=== PATIENT | female | born 1960 | race Caucasian/White ===

== ENCOUNTER 2017-06-21 22:40 | Emergency (ER) | payer OTHER ==
[2017-06-21 22:52] VITALS: BP 122/84; PULSE 99; TEMP 98; BMI 23.6
--- NOTE | 2017-06-21 23:53 | PDOC ---
Attending Attestation - Resident Resident Name: Hamzah Estrada - ED Attending Attestation I have performed the following: I have examined & evaluated the patient, The case was reviewed & discussed with the resident, I agree w/resident's findings & plan, Exceptions are as noted - Physicial Exam PE: 06/22/17 00:37 *Physical Exam General Appearance: Yes: Appropriately Dressed. No: Apparent Distress, Intoxicated HEENT: positive: EOMI, BENITA, Normal ENT Inspection, Normal Voice, TMs Normal, Pharynx Normal. negative: Pale Conjunctivae, Photophobia, Scleral Icterus (R), Scleral Icterus (L) Neck: positive: Trachea midline, Normal Thyroid, Supple. negative: Tender, Rigid, Carotid bruit, Stridor, Lymphadenopathy (R), Lymphadenopathy (L), Thyromegaly Respiratory/Chest: positive: Lungs Clear, Normal Breath Sounds. negative: Chest Tender, Respiratory Distress, Accessory Muscle Use, Labored Respiration, RES, Crackles, Rales, Rhonchi, Stridor, Wheezing, Dullness Cardiovascular: positive: Regular Rhythm, Regular Rate, S1, S2. negative: Edema , JVD, Murmur, Bradycardia, Tachycardia Vascular Pulses: Dorsalis-Pedis (R): 2+, Doralis-Pedis (L): 2+ Gastrointestinal/Abdominal: positive: Normal Bowel Sounds, Flat, Soft. negative : Tender, Organomegaly, Pulsatile Mass, Increased Bowel Sounds, Decreased BS, Distended, Guarding, Rebound, Hernia, Hepatomegaly, Spleenomegaly Lymphatic: negative: Adenopathy, Tenderness Musculoskeletal: positive: Normal Inspection. negative: CVA Tenderness, Decreased Range of Motion Extremity: positive: Normal Capillary Refill, Normal Inspection, Normal Range of Motion, Pelvis Stable. negative: Tender, Pedal Edema, Swelling, Erythema Integumentary: positive: Normal Color, Dry, Warm. negative: Cyanotic, Erythema , Jaundice, Rash Neurologic: positive: chemical weigher II-XII NML intact, Fully Oriented, Alert, Normal Mood/ Affect, Motor Strength 5/5. negative: EOM Palsy, Facial Droop, Sensory Deficit
--- NOTE | 2017-06-22 00:04 | PDOC ---
History of Present Illness - General Chief Complaint: Chronic pain Stated Complaint: OVERDOSE Time Seen by Provider: 06/21/17 23:24 History Source: Patient Exam Limitations: No Limitations - History of Present Illness Initial Comments: 06/22/17 00:00 The patient is a 56F with a PMH of depression/anxiety, HLD, on chronic pain management who presents to the ED via EMS due to her mom saying that she was acting strange. The patient states that the only thing she has complaints of is that she took her prescribed percocet too closely (8 hours apart instead of 12) . She has no other complaints and states she wants to go. Soc: smokes 1 ppd, no drinking, no drugs All: sulfa Past History - Past Medical History Allergies/Adverse Reactions: Allergies Allergy/AdvReac Type Severity Reaction Status Date / Time Sulfa (Sulfonamide Allergy Mild Rash Verified 06/21/17 22:48 Antibiotics) Home Medications: Ambulatory Orders Paroxetine HCl [Paxil] 40 mg PO DAILY 10/24/14 Trazodone HCl [Desyrel -] 100 mg PO BID 10/24/14 Atorvastatin Ca [Lipitor -] 10 mg PO DAILY 12/05/15 Cancer: (LIPOMA REMOVED) Liver Disease: Yes (HEP C. TREATED) Psychiatric Problems: Yes (DEPRESSION) - Immunization History Td Vaccination: Yes - Psycho/Social/Smoking Cessation Hx Anxiety: Yes Suicidal Ideation: No Smoking Status: Yes Smoking History: Current every day smoker Have you smoked in the past 12 months: Yes Number of Cigarettes Smoked Daily: 1 Information on smoking cessation initiated: No 'Breaking Loose' booklet given: 10/24/14 Hx Alcohol Use: (pt denies) Drug/Substance Use Hx: (pt denies) Substance Use Type: None Review of Systems - Review of Systems Able to Perform ROS?: Yes Is the patient limited Jamaican proficient: No Constitutional: No: Chills, Fever Respiratory: No: Cough, Shortness of Breath Cardiac (ROS): No: Chest Pain ABD/GI: No: Constipated, Diarrhea, Nausea, Vomiting, Other (abd pain) Neurological: Yes: Numbness (chronic in R ankle). No: Headache, Tingling, Weakness *Physical Exam - Vital Signs Last Vital Signs Temp Pulse Resp BP Pulse Ox 98.0 F 99 H 18 122/84 99 06/21/17 22:46 06/21/17 22:46 06/21/17 22:46 06/21/17 22:46 06/21/17 22:46 - Physical Exam General Appearance: Yes: Nourished, Appropriately Dressed. No: Apparent Distress, Mild Distress HEENT: positive: Normal Voice, Hearing Grossly Normal, Other (conjunctival injection b/l) Respiratory/Chest: positive: Lungs Clear, Normal Breath Sounds. negative: Chest Tender, Respiratory Distress, Accessory Muscle Use, Labored Respiration Cardiovascular: positive: Regular Rhythm, Regular Rate, S1, S2. negative: Diastolic Murmur, Systolic Murmur Gastrointestinal/Abdominal: positive: Flat, Soft. negative: Tender, Protuberent , Distended, Guarding, Rebound, Tenderness Integumentary: positive: Dry, Warm. negative: Clammy Neurologic: positive: Alert Medical Decision Making - Medical Decision Making 06/22/17 00:02 The patient is a 56F with a PMH of HLD, depression/anxiety, with chronic pain who presents to the ED with complaints of using her prescribed percocets 8 hours apart instead of 10. She has no complaints. Will observe her, reassess vitals, and d/c. 06/22/17 00:36 Vitals stable, patient desires d/c. Will put in d/c. *DC/Admit/Observation/Transfer Diagnosis at time of Disposition: Pain - Discharge Dispostion Disposition: HOME Condition at time of disposition: Improved Admit: No - Referrals Referrals: STAFF,NOT ON [Primary Care Provider] - - Patient Instructions Printed Discharge Instructions: DI for Prescription Opioid Use Additional Instructions: Please return to the ER if your symptoms persist, worsen, or if new symptoms arise. Print Language: PARAGUAYAN - Attestations Physician Attestion: 06/22/17 00:36 I, Dr. Hamzah Estrada, attest that this document has been prepared under my direction and personally reviewed by me in its entirety. I further attest, that it accurately reflects all work, treatment, procedures and medical decision -making performed by me.
== END 2017-06-22 00:42 | disposition home or self-care (01) ==
LOC: JER 22:40
DX: G89.29 Other chronic pain (principal); F41.9 Anxiety disorder, unspecified; F32.9 Major depressive disorder, single episode, unspecified; E78.5 Hyperlipidemia, unspecified; Z88.2 Allergy status to sulfonamides; B18.2 Chronic viral hepatitis C; F17.210 Nicotine dependence, cigarettes, uncomplicated
CPT/HCPCS: 99282-25

== ENCOUNTER 2017-07-23 17:33 | Emergency (ER) | payer OTHER ==
[2017-07-23 17:39] VITALS: BP 131/90; PULSE 88; TEMP 98.7; BMI 21.4
[2017-07-23 17:48] LABS: URINE APPEARANCE Clear; URINE BILIRUBIN Negative (NEGATIVE); URINE GLUCOSE (UA) Negative (NEGATIVE); URINE KETONE Negative (NEGATIVE); URINE NITRITE Negative (NEGATIVE); URINE PROTEIN Negative (NEGATIVE); URINE UROBILINOGEN 0.2 (0.2-1.0)
[2017-07-23] MEDS ORDERED: IBUPROFEN 600 MG TABLET (FP) PO ONE ×2 (17:59→18:03)
[2017-07-23] MEDS ORDERED: ONDANSETRON *ODT* 4 MG TABLET SL ONE (17:59)
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
[2017-07-23] MEDS ORDERED: ONDANSETRON *ODT* 4 MG TABLET ONE (18:04)
[2017-07-23 18:44] LABS: URINE BLOOD 2+ (NEGATIVE); URINE COLOR YELLOW
[2017-07-23] MEDS ORDERED: morphine CARPU-JECT 4 MG/1 ML DISP.SYRIN IM ONE (18:48)
[2017-07-23] MEDS ORDERED: morphine CARPU-JECT 4 MG/1 ML DISP.SYRIN ONE (18:50)
[2017-07-23 19:10] LABS: URINE BACTERIA 1+ /hpf (NEGATIVE)
[2017-07-23 22:07] LABS: URINE LEUK ESTERASE TRACE (NEGATIVE)
== END 2017-07-23 19:11 | disposition home or self-care (01) ==
LOC: FER 17:33
PROC: 3E023NZ Introduction of Analgesics, Hypnotics, Sedatives into Muscle, Percutaneous Approach (ICD-10-PCS; principal; 2017-07-23)
DX: N20.0 Calculus of kidney (principal); F17.210 Nicotine dependence, cigarettes, uncomplicated; Z87.2 Personal history of diseases of the skin and subcutaneous tissue; F32.9 Major depressive disorder, single episode, unspecified
CPT/HCPCS: 74176; 81003; 81015; 96372; 99282-25

== ENCOUNTER 2018-01-17 16:30 | Emergency (ER) | payer OTHER ==
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
[2018-01-17] MEDS ORDERED: KETOROLAC TROMETHAMINE 30 MG/1 ML VIAL IM ONE ×2 (16:47→18:03)
[2018-01-17 16:50] VITALS: BP 130/88; PULSE 68; TEMP 98.3; BMI 22.8
[2018-01-17] MEDS ORDERED: KETOROLAC TROMETHAMINE 30 MG/1 ML VIAL ONE ×2 (17:01→18:16)
[2018-01-17] MEDS ORDERED: ACETAMINOPHEN 1000 MG/100 ML VIAL (NON FORMULARY) IVPB ONE (18:03)
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
[2018-01-17] MEDS ORDERED: ACETAMINOPHEN INJECTION 100 ML IVPB ONE (18:11)
== END 2018-01-17 18:35 | disposition home or self-care (01) ==
LOC: FER 16:30
PROC: 3E033NZ Introduction of Analgesics, Hypnotics, Sedatives into Peripheral Vein, Percutaneous Approach (ICD-10-PCS; principal; 2018-01-17)
PROC: 3E0233Z Introduction of Anti-inflammatory into Muscle, Percutaneous Approach (ICD-10-PCS; 2018-01-17)
DX: M25.571 Pain in right ankle and joints of right foot (principal)
CPT/HCPCS: 73610-TC-RT-FY; 99283-25; J0131

== ENCOUNTER 2018-08-17 18:07 | Emergency (ER) | payer OTHER ==
[2018-08-17 18:11] VITALS: BP 112/85; PULSE 89; TEMP 98.2; BMI 22.1
--- NOTE | 2018-08-17 18:11 | PDOC ---
Attending Attestation - HPI HPI: 08/17/18 19:12 The patient is a 57 year old female, with a significant PMH of HLD and nicotine , who presents to the emergency department complaining of a cough that began approximately 6 days ago. The patient states she endorses associated symptoms of chills, sweats, headache, sputum productions and generalized weakness. She mentions she had pneumonia in 2008 and bronchitis twice in the last few years. The patient denies chest pain, shortness of breath, and dizziness.Denies nausea , vomit, diarrhea and constipation.Denies dysuria, frequency, urgency and hematuria. Allergies: Sulfa Past surgical history: None reported Social history: None reported - Physicial Exam PE: 08/17/18 19:12 GENERAL: Alert, awake and oriented. No apparent distress. HEENT: +Watery discharge. Normocephalic, atraumatic. CARDIOVASCULAR: Normal S1, S2. Regular rate and rhythm. PULMONARY: Respiratory rate 17 unlabored. O2 Sat 100%Clear to auscultation bilaterally. ABDOMEN: Soft, non-distended, non-tender. SKIN: Warm, dry. No rash - Medical Decision Making 08/17/18 19:13 Documentation prepared by Ifeoma Jaffe, acting as biomedical engineering director for Nigel Robledo MD. <Ifeoma Jaffe - Last Filed: 08/17/18 19:12> - Resident Resident Name: Eleanor Benjamin - ED Attending Attestation I have performed the following: I have examined & evaluated the patient, The case was reviewed & discussed with the resident, I agree w/resident's findings & plan, Exceptions are as noted - Medical Decision Making 08/18/18 07:13 Assessment: Bronchitis in a smoker. No sign of pneumonia. No fever, respiratory rate 16 and unlabored, O2 saturation 100%. No tachypnea or dyspnea. Plan: Antibiotics, expectorant and cough suppressant, try to reduce smoking at least until illness improves and consider smoking cessation. Fully ambulatory and in no distress respiratory or otherwise at discharge to follow-up as directed <Nigel Padilla - Last Filed: 08/18/18 07:15>
--- NOTE | 2018-08-17 18:16 | PDOC ---
History of Present Illness - General Chief Complaint: Cold Symptoms Stated Complaint: COUGH Time Seen by Provider: 08/17/18 18:16 History Source: Patient Exam Limitations: No Limitations - History of Present Illness Initial Comments: 08/17/18 18:26 57 year old female with PMH HLD, nicotine use presents to ED complaining of cough x6 days. She admits to generalized weakness, sputum production, chills, sweats, headache. She denies fever, sore throat, ear pain, nausea, vomiting, diarrhea, abdominal pain, chest pain, shortness of breath, numbness, weakness, tingling. She states she had pneumonia in 2008 and bronchitis twice in the last few years. Allergies - Sulfa (rash) Past History - Past Medical History Allergies/Adverse Reactions: Allergies Allergy/AdvReac Type Severity Reaction Status Date / Time Sulfa (Sulfonamide Allergy Mild Rash Verified 08/17/18 18:08 Antibiotics) naproxen [From Naprosyn] Allergy Rash Verified 08/17/18 18:08 Home Medications: Ambulatory Orders Paroxetine HCl [Paxil] 60 mg PO DAILY 10/24/14 Atorvastatin Ca [Lipitor -] 10 mg PO DAILY 12/05/15 Gabapentin 300 mg PO TID 07/23/17 Azithromycin [Zithromax 250mg Tablets -] 250 mg PO UTDICT #6 tab 08/17/18 Guaifenesin AC [Robitussin-AC] 1 - 2 tsp PO HS PRN #90 ml MDD 2 08/17/18 Cancer: (LIPOMA REMOVED) COPD: No Liver Disease: Yes (HEP C. TREATED) Psychiatric Problems: Yes (DEPRESSION) - Immunization History Td Vaccination: Yes - Suicide/Smoking/Psychosocial Hx Smoking Status: Yes Smoking History: Current every day smoker Have you smoked in the past 12 months: Yes Number of Cigarettes Smoked Daily: 20 Information on smoking cessation initiated: Yes 'Breaking Loose' booklet given: 08/17/18 Hx Alcohol Use: No Drug/Substance Use Hx: No Substance Use Type: None Review of Systems - Review of Systems Able to Perform ROS?: Yes Comments:: 08/17/18 18:36 General: admits to generalized weakness, chills, sweats. denies fever. HEENT: admits to nasal congestion. denies sore throat, rhinorrhea, ear pain. Heart: denies chest pain, palpitations, syncope, lower extremity swelling, diaphoresis. Respiratory: admits to cough, sputum production. denies shortness of breath, hemoptysis. Abdomen: denies abdominal pain, nausea, vomiting, diarrhea, constipation, blood in stool. : denies dysuria, increased urinary frequency, hematuria, urinary incontinence , flank pain. Back: denies back pain. Musculoskeletal: denies joint pain, muscle pain, joint swelling. Neurological: admit to headache. denies dizziness, numbness, tingling, weakness. Skin: denies rash, laceration, abrasion. *Physical Exam - Vital Signs Last Vital Signs Temp Pulse Resp BP Pulse Ox 98.2 F 89 17 112/85 100 08/17/18 18:08 08/17/18 18:08 08/17/18 18:08 08/17/18 18:08 08/17/18 18:08 - Physical Exam Comments: 08/17/18 18:39 Constitutional: Well-nourished, Well-developed, appearing stated age. HEENT: head is normocephalic, atraumatic. EOMI. PERRLA. no posterior pharyngeal erythema. no tonsillar swelling. no tonsillar exudates. uvula midline. oral mucosa moist. watery nasal discharge noted. Neck: supple. Full ROM. Heart: regular rhythm. no murmurs, rubs or gallops. Lungs: clear to auscultation bilaterally. no crackles, rhonchi or wheezing. no stridor. Abdomen: soft, nontender. normal bowel sounds. no rebound, guarding, masses. Extremities: Peripheral pulses intact. No lower extremity edema. Neurological: CN 2-12 grossly intact. Moves all four extremities. Psych: awake, alert, oriented x3. Follows commands. Answers questions appropriately. Medical Decision Making - Medical Decision Making 08/17/18 18:41 57 year old female with PMH HLD and nicotine history complaining of productive cough, nasal congestion, headache, chills, sweats, generalized weakness. Initial Vital Signs Temp Pulse Resp BP Pulse Ox 98.2 F 89 17 112/85 100 08/17/18 18:08 08/17/18 18:08 08/17/18 18:08 08/17/18 18:08 08/17/18 18:08 Afebrile. No tachycardia. No tachypnea. Mild hypotension. No hypoxia on room air. Lungs clear to auscultation. Pt appears well, but congested. Pt likely has bronchitis. - Prescription sent to pharmacy for Z-pack and Robitussin with Codeine. I discussed the plan for care with the patient, with which which she agrees. Pt will be discharged. *DC/Admit/Observation/Transfer Diagnosis at time of Disposition: Bronchitis, Cough - Discharge Dispostion Disposition: HOME Condition at time of disposition: Stable Decision to Admit order: No - Prescriptions Prescriptions: Azithromycin [Zithromax 250mg Tablets -] 250 mg PO UTDICT #6 tab Guaifenesin AC [Robitussin-AC] 1 - 2 tsp PO HS PRN #90 ml MDD 2 PRN Reason: Cough - Referrals Referrals: Zuleika Bates [Primary Care Provider] - - Patient Instructions Additional Instructions: You were seen today for cough. You likely have bronchitis. I have sent a prescription for a Z-pack to your pharmacy. Pick it up tonight and take as directed on package. - Take with food to avoid nausea Take a pro-biotic over the counter as indicated on label to help prevent antibiotic associated diarrhea. I have sent a prescription for Robitussin with Codeine to your pharmacy to help with cough. Take as indicated on label. Follow up with your primary care doctor within 3-4 days. Call their office Sunday and make an appointment for as soon as available. Tell them you were seen in the Emergency Department. Your care is not complete until you follow up. - You need to stop smoking - Discuss this with your primary care provider Return to the Emergency Department for chest pain, shortness of breath, high fever or any other new, worsening or concerning symptoms. - Post Discharge Activity
== END 2018-08-17 18:52 | disposition home or self-care (01) ==
LOC: FER 18:07
DX: J40 Bronchitis, not specified as acute or chronic (principal); R05 Cough; E78.5 Hyperlipidemia, unspecified; F17.210 Nicotine dependence, cigarettes, uncomplicated
CPT/HCPCS: 99281-25

== ENCOUNTER 2019-01-03 18:59 | Emergency (ER) | payer OTHER ==
--- NOTE | 2019-01-03 19:11 | PDOC ---
History of Present Illness - General History Source: Patient Exam Limitations: No Limitations - History of Present Illness Initial Comments: 01/03/19 19:37 The patient is a 58-year-old female with past medical history significant for chronic right leg pain (follows up with pain management, on Percocet) and osteoarthritis of R. ankle presents to the emergency department with right wrist pain s/p a fall earlier today. The patient reports around 11:00 am today she suffered a fall, with her hands outstretched. The patient states she didnt want to further injure her leg, so she tried to prevent that by having her hands out. The patient reports she sustained a scrap to her L. Knee. The patient reports since the fall shes been having pain to her wrist, worse on the right side. The patient states she is unable to move it. The patient denies taking any pain medication. Allergies: Sulfa and Naproxen (headache) PCP: Dr. Bates. <Funmilayo Peña - Last Filed: 01/03/19 19:58> <Lizandro Cabello - Last Filed: 01/04/19 05:35> - General Chief Complaint: Injury Stated Complaint: RT WRIST PAIN Time Seen by Provider: 01/03/19 19:11 Past History <Funmilayo Peña - Last Filed: 01/03/19 19:58> - Past Medical History Cancer: (LIPOMA REMOVED) COPD: No Liver Disease: Yes (HEP C. TREATED) Psychiatric Problems: Yes (DEPRESSION) - Immunization History Td Vaccination: Yes - Suicide/Smoking/Psychosocial Hx Smoking Status: Yes Smoking History: Current every day smoker Have you smoked in the past 12 months: Yes Number of Cigarettes Smoked Daily: 20 'Breaking Loose' booklet given: 07/23/17 Hx Alcohol Use: No Drug/Substance Use Hx: No Substance Use Type: None <Lizandro Cabello - Last Filed: 01/04/19 05:35> - Past Medical History Allergies/Adverse Reactions: Allergies Allergy/AdvReac Type Severity Reaction Status Date / Time Sulfa (Sulfonamide Allergy Mild Rash Verified 08/17/18 18:08 Antibiotics) naproxen [From Naprosyn] Allergy Rash Verified 08/17/18 18:08 Home Medications: Ambulatory Orders Paroxetine HCl [Paxil] 60 mg PO DAILY 10/24/14 Atorvastatin Ca [Lipitor -] 10 mg PO DAILY 12/05/15 Oxycodone HCl/Acetaminophen [Percocet 5-325 mg Tablet] 1 tab PO Q4H PRN Review of Systems - Review of Systems Able to Perform ROS?: Yes Comments:: 01/03/19 19:37 GENERAL/CONSTITUTIONAL: No fever or chills. No weakness. HEAD, EYES, EARS, NOSE AND THROAT: No change in vision. No ear pain or discharge. No sore throat. CARDIOVASCULAR: No chest pain or shortness of breath. RESPIRATORY: No cough, wheezing, or hemoptysis. GASTROINTESTINAL: No nausea, vomiting, diarrhea or constipation. GENITOURINARY: No dysuria, frequency, or change in urination. MUSCULOSKELETAL: +R. Wrist pain, L. wrist minimal pain. No other joint or muscle swelling or pain. No neck or back pain. SKIN: No rash NEUROLOGIC: No headache, vertigo, loss of consciousness, or change in strength/ sensation. ENDOCRINE: No increased thirst. No abnormal weight change. HEMATOLOGIC/LYMPHATIC: No anemia, easy bleeding, or history of blood clots. ALLERGIC/IMMUNOLOGIC: No hives or skin allergy. <Funmilayo Peña - Last Filed: 01/03/19 19:58> *Physical Exam - Vital Signs Last Vital Signs Temp Pulse Resp BP Pulse Ox 98.7 F 93 H 16 0/0 L 97 01/03/19 19:07 01/03/19 19:07 01/03/19 19:07 01/03/19 19:07 01/03/19 19:07 - Physical Exam Comments: 01/03/19 19:58 GENERAL: Awake, alert, and fully oriented, in no acute distress HEAD: No signs of trauma NECK: Normal ROM, supple, no lymphadenopathy, JVD, or masses LUNGS: Breath sounds equal, clear to auscultation bilaterally. No wheezes, and no crackles HEART: Regular rate and rhythm, normal S1 and S2, no murmurs, rubs or gallops EXTREMITIES: +radial side wrist tenderness. no edema. No clubbing or cyanosis. No cords, erythema. SKIN: Warm, Dry, normal turgor, no rashes or lesions noted. <Funmilayo Peña - Last Filed: 01/03/19 19:58> Moderate Sedation - Procedure Monitoring Vital Signs: Procedure Monitoring Vital Signs Temperature 98.7 F 01/03/19 19:07 Pulse Rate 93 H 01/03/19 19:07 Respiratory Rate 16 01/03/19 19:07 Blood Pressure 0/0 L 01/03/19 19:07 O2 Sat by Pulse Oximetry (%) 97 01/03/19 19:07 <Funmilayo Peña - Last Filed: 01/03/19 19:58> Medical Decision Making - Medical Decision Making 01/04/19 05:34 msk wrist pain no fx on plain films cockup splint until symptoms tahmina nsaids fu for persistent symptomotology <Lizandro Cabello - Last Filed: 01/04/19 05:35> *DC/Admit/Observation/Transfer - Attestations Scribe Attestion: 01/03/19 19:37 Documentation prepared by Funmilayo Peña, acting as medical records receptionist for Lizandro Cabello MD. <Funmilayo Peña - Last Filed: 01/03/19 19:58> <Lizandro Cabello - Last Filed: 01/04/19 05:35> Diagnosis at time of Disposition: Wrist contusion Qualifiers: Encounter type: initial encounter Laterality: right Qualified Code(s): S60.211A - Contusion of right wrist, initial encounter - Discharge Dispostion Disposition: HOME Condition at time of disposition: Stable - Referrals Referrals: Zuleika Bates [Primary Care Provider] - - Patient Instructions Printed Discharge Instructions: DI for Wrist Strain, How to Take Care of Your Splint - Post Discharge Activity
[2019-01-03 19:12] VITALS: BP 0/0; PULSE 93; TEMP 98.7; BMI 20.7
[2019-01-03] MEDS ORDERED: KETOROLAC TROMETHAMINE 60 MG/2 ML VIAL IM ONE (19:16)
[2019-01-03] MEDS ORDERED: KETOROLAC TROMETHAMINE 60 MG/2 ML VIAL ONE (19:43)
== END 2019-01-03 19:48 | disposition home or self-care (01) ==
LOC: FER 18:59
PROC: 3E0233Z Introduction of Anti-inflammatory into Muscle, Percutaneous Approach (ICD-10-PCS; principal; 2019-01-03)
DX: S60.211A Contusion of right wrist, initial encounter (principal); W20.8XXA Other cause of strike by thrown, projected or falling object, initial encounter; Y93.89 Activity, other specified; Y92.89 Other specified places as the place of occurrence of the external cause; B19.20 Unspecified viral hepatitis C without hepatic coma; F32.9 Major depressive disorder, single episode, unspecified; F17.210 Nicotine dependence, cigarettes, uncomplicated; D17.9 Benign lipomatous neoplasm, unspecified; G89.29 Other chronic pain
CPT/HCPCS: 73110-TC-RT-FY; 96372; 99282-25

== ENCOUNTER 2019-02-23 12:23 | Emergency (ER) | payer OTHER ==
--- NOTE | 2019-02-23 12:39 | PDOC ---
History of Present Illness - General Chief Complaint: Pain Stated Complaint: LEFT LEG PAIN Time Seen by Provider: 02/23/19 12:37 History Source: Patient Exam Limitations: No Limitations - History of Present Illness Initial Comments: 02/23/19 12:57 58y F hx of hl, depression, presents with L leg pain. Pt was in [facility] until this morning around 4am when she woke up to use the bathroom, put her feet on the ground to stand up and noticed a pain behind her L knee that radiated up to her L buttock. The pt notse the pain is more severe, it is worse when stands up and improvd when she sits with her knee flexed. pt osman any fever/chills, urinary or bowel incontinence or retention, back pain. No cp, sob, cough, abd pain. Pt denies any changes to her routine including heavy lifting, excercises. Pt took a percocet and lyrica this morning without signiciant improvement. ( perc for chronic R leg pain) Pt ntose she has these episodes ~3x a year that start spontaenously . Past History - Past Medical History Allergies/Adverse Reactions: Allergies Allergy/AdvReac Type Severity Reaction Status Date / Time Sulfa (Sulfonamide Allergy Mild Rash Verified 02/23/19 12:24 Antibiotics) naproxen [From Naprosyn] Allergy Rash Verified 02/23/19 12:25 Home Medications: Ambulatory Orders Paroxetine HCl [Paxil] 60 mg PO DAILY 10/24/14 Atorvastatin Ca [Lipitor -] 10 mg PO DAILY 12/05/15 Oxycodone HCl/Acetaminophen [Percocet 5-325 mg Tablet] 1 tab PO Q4H PRN Pregabalin [Lyrica] 50 mg PO BID 02/23/19 Cancer: (LIPOMA REMOVED) COPD: No Hypercholesterolemia: Yes Liver Disease: Yes (HEP C. TREATED) Psychiatric Problems: Yes (DEPRESSION) - Immunization History Td Vaccination: Yes - Suicide/Smoking/Psychosocial Hx Smoking Status: Yes Smoking History: Current every day smoker Have you smoked in the past 12 months: Yes Number of Cigarettes Smoked Daily: 20 'Breaking Loose' booklet given: 07/23/17 Hx Alcohol Use: No Drug/Substance Use Hx: No Substance Use Type: None Review of Systems - Review of Systems Able to Perform ROS?: Yes Comments:: 02/23/19 13:01 Constitutional - no reported Fever, Chills, Respiratory: no reported cough, sob, Cardiac: no reported chest pain, Abd/GI: no reported abd pain, nausea, vomiting, : no reported dysuria, frequency, discharge Musculskelatal - +L leg pain no reported back pain, joint swelling skin - no reported bruising, erythema, rash neurological: no reported headache, numbness, focal weakness, tingling, ataxia, hematologic: no reported easy bruising, easy bleeding *Physical Exam - Physical Exam Comments: 02/23/19 13:02 GENERAL: The patient is awake, alert, and fully oriented, Nontoxic - in no acute distress. EXTREMITIES: Normal range of motion, no edema. No clubbing or cyanosis. No cords, erythema, or tenderness. Mild ttp on her superior L buttock/gluteus darius (excacerbates her L leg pain). SEnsation intact and symmetric, dorsiflexion/extnesion intact and symmmetric, knee/hip extension/flexion intact and symmetric. BACK: No focal ttp on midline or parapsinal cervical/thoracic/lumbar back Medical Decision Making - Medical Decision Making 02/23/19 13:03 Suspect sciatica no red flags no ttp on back toradol for pain pt declines muscle relaxants as she does not tolrate them will dc with pmd fu return precautions were discussed pt noted with jm dawn - but has taken advil and toradol before without ill effect I discussed the physical exam findings, ancillary test results and final diagnoses with the patient. I answered all of the patient's questions. The patient was satisfied with the care received and felt comfortable with the discharge plan and treatment plan. The patient will call their primary care physician within 24 hours to arrange follow-up and will return to the Emergency Department with any new, persistent or worsening symptoms. *DC/Admit/Observation/Transfer Diagnosis at time of Disposition: Sciatica Qualifiers: Laterality: left Qualified Code(s): M54.32 - Sciatica, left side - Discharge Dispostion Disposition: HOME Condition at time of disposition: Stable Decision to Admit order: No - Referrals Referrals: Zuleika Bates [Primary Care Provider] - - Patient Instructions Printed Discharge Instructions: DI for Sciatica Additional Instructions: Return to the emergency department immediately with ANY new, persistent or worsening symptoms including numbness, tingling, weakness, fevers or any other concerns. Take ibuprofen (400mg)/tylenol(650mg) every 6 hours for 2 days. Apply heat to your sore muscles. You MUST call and follow up with your doctor in 3-4 days for further evaluation of your symptoms. Your emergency department visit is not complete without a followup with your doctor for reevaluation.. Results were discussed with you. Please make sure your doctor reviews the results of your emergency evaluation. Print Language: CROATIAN - Post Discharge Activity
[2019-02-23 12:42] VITALS: BP 114/85; PULSE 85; TEMP 99.6; BMI 22.1
[2019-02-23] MEDS ORDERED: KETOROLAC TROMETHAMINE 60 MG/2 ML VIAL ONE (12:54)
[2019-02-23] MEDS ORDERED: KETOROLAC TROMETHAMINE 60 MG/2 ML VIAL IM ONE (12:54)
== END 2019-02-23 13:16 | disposition home or self-care (01) ==
LOC: SUPCPDRO 12:23 → FER 12:23
PROC: 3E0233Z Introduction of Anti-inflammatory into Muscle, Percutaneous Approach (ICD-10-PCS; principal; 2019-02-23)
DX: M54.32 Sciatica, left side (principal); F17.210 Nicotine dependence, cigarettes, uncomplicated; F32.9 Major depressive disorder, single episode, unspecified; B19.20 Unspecified viral hepatitis C without hepatic coma
CPT/HCPCS: 99282-25

== ENCOUNTER 2019-03-08 11:24 | Emergency (ER) | payer OTHER ==
--- NOTE | 2019-03-08 11:28 | PDOC ---
History of Present Illness - General Chief Complaint: Back Pain Stated Complaint: LOW BACK PAIN Time Seen by Provider: 03/08/19 11:26 History Source: Patient Exam Limitations: No Limitations - History of Present Illness Initial Comments: 03/08/19 11:27 Pt is a 58yo F with PMH of HLD, Sciatica, Depression presenting to ED with complaints of L posterior leg pain. Pt states this is due to sciatica which she has been having off and on for about 1 year now but for the past two weeks it has been getting worse. She states it was so bad yesterday that she fell on to her knees at the store because her leg gave out. Pain is a shooting pain located in the L posterior thigh only. She had MRI done 5 days ago which showed L S1 nerve root impingement. She denies injury to the back. She is seeing pain management and states she has an appointment with someone for an epidural coming up. She states that she was prescribed Lyrica and Percocet but the medications have not been helping but they normally do. Denies numbness/tingling , weakness, fevers, chills, incontinence, inability to walk, head injury, LOC. PMD: Wing PMH: see hpi PSH: R leg fracture fixation Meds: see med rec Allergies: Sulfa drugs Past History - Past Medical History Allergies/Adverse Reactions: Allergies Allergy/AdvReac Type Severity Reaction Status Date / Time Sulfa (Sulfonamide Allergy Mild Rash Verified 03/08/19 11:40 Antibiotics) naproxen [From Naprosyn] Allergy Rash Verified 03/08/19 11:40 Home Medications: Ambulatory Orders Oxycodone HCl/Acetaminophen [Percocet 5-325 mg Tablet] 1 tab PO Q4H PRN Pregabalin [Lyrica] 50 mg PO TID 02/23/19 Atorvastatin Calcium [Lipitor] 10 mg PO DAILY 03/08/19 Paroxetine HCl [Paxil -] 60 mg PO DAILY 03/08/19 Cancer: (LIPOMA REMOVED) COPD: No Hypercholesterolemia: Yes Liver Disease: Yes (HEP C. TREATED) Psychiatric Problems: Yes (DEPRESSION) - Immunization History Td Vaccination: Yes - Suicide/Smoking/Psychosocial Hx Smoking Status: Yes Smoking History: Current every day smoker Have you smoked in the past 12 months: Yes Number of Cigarettes Smoked Daily: 20 'Breaking Loose' booklet given: 07/23/17 Hx Alcohol Use: No Drug/Substance Use Hx: No Substance Use Type: None Review of Systems - Review of Systems Constitutional: No: Chills, Fever HEENTM: No: Symptoms Reported Respiratory: No: Symptoms reported Cardiac (ROS): No: Symptoms Reported ABD/GI: No: Symptoms Reported : No: Symptoms Reported Musculoskeletal: Yes: See HPI, Other (L leg pain). No: Back Pain, Joint Pain, Neck Pain Neurological: No: Headache, Numbness, Tingling, Tremors, Weakness, Ataxia *Physical Exam - Physical Exam General Appearance: Yes: Nourished, Appropriately Dressed. No: Apparent Distress HEENT: positive: EOMI, BENITA, Normal ENT Inspection Neck: positive: Trachea midline, Supple Respiratory/Chest: positive: Lungs Clear, Normal Breath Sounds Cardiovascular: positive: Regular Rhythm, Regular Rate Gastrointestinal/Abdominal: positive: Normal Bowel Sounds, Soft. negative: Tender Musculoskeletal: negative: CVA Tenderness, Decreased Range of Motion, Muscle Spasm, Vertebral Tenderness Extremity: positive: Normal Capillary Refill Integumentary: positive: Normal Color, Dry, Warm Neurologic: positive: independent beauty consultant II-XII NML intact, Fully Oriented, Alert, Normal Mood/ Affect, Normal Response, Motor Strength 5/5 Medical Decision Making - Medical Decision Making 03/08/19 11:29 Pt is a 58yo F with PMH of HLD, Sciatica, Depression presenting to ED with complaints of L posterior leg pain. Pt states this is due to sciatica which she has been having off and on for about 1 year now but for the past two weeks it has been getting worse. She states it was so bad yesterday that she fell on to her knees at the store because her leg gave out. Pain is a shooting pain located in the L posterior thigh only. She had MRI done 5 days ago which showed L S1 nerve root impingement. She denies injury to the back. She is seeing pain management and states she has an appointment with someone for an epidural coming up. She states that she was prescribed Lyrica and Percocet but the medications have not been helping but they normally do. Denies numbness/tingling , weakness, fevers, chills, incontinence, inability to walk, head injury, LOC. Vitals: low grade fever 100.1, normocardic PE: no vertebral tenderness, no step offs, ambulatory, no paravertebral muscle spasms otherwise normal exam Likely sciatica pain, low suspicion for other cord pathology given MRI report. Pt states that toradol does not help and is refusing toradol and muscle relaxant. -6mg IM morphine -Lidoderm Patch -Reassess Pt has pain management f/u and has medications at home, low suspicion for other etiology for pain. Feeling better and ambulatory. Safe for dc home. given return precautions. *DC/Admit/Observation/Transfer Diagnosis at time of Disposition: Sciatica Qualifiers: Laterality: left Qualified Code(s): M54.32 - Sciatica, left side - Discharge Dispostion Disposition: HOME Condition at time of disposition: Improved Decision to Admit order: No - Referrals Referrals: Zuleika Bates [Primary Care Provider] - Nav Flores MD [Staff Physician] - - Patient Instructions Printed Discharge Instructions: DI for Sciatica Additional Instructions: You were seen in the emergency room for L leg pain due to sciatica. Please take your medications as directed. Continue seeing pain management. I recommend laying down on a flat surface, sometimes this helps. Remember to take the patch off at midnight. Come back to the emergency room for worsening pain, inability to walk, or if any new concerning symptom develops. Thank you - Post Discharge Activity
--- NOTE | 2019-03-08 11:29 | PDOC ---
Attending Attestation - Resident Resident Name: KathyMariajose - ED Attending Attestation I have performed the following: I have examined & evaluated the patient, The case was reviewed & discussed with the resident, I agree w/resident's findings & plan, Exceptions are as noted - HPI HPI: 58 yo F history chronic pain secondary to herniated disc at S1 presents with an exacerbation of her chronic pain. Typically it localizes to her low back and to her L posterior knee and thigh. She fell yesterday onto her knees, however, the pain is posterior, not anterior. No leg swelling. - Physicial Exam PE: GENERAL: Awake, alert, and fully oriented, in no acute distress HEAD: No signs of trauma EYES: PERRLA, EOMI, sclera anicteric, conjunctiva clear ENT: Auricles normal inspection, hearing grossly normal, nares patent, oropharynx clear without exudates. Moist mucosa NECK: Normal ROM, supple, no lymphadenopathy, JVD, or masses LUNGS: Breath sounds equal, clear to auscultation bilaterally. No wheezes, and no crackles HEART: Regular rate and rhythm, normal S1 and S2, no murmurs, rubs or gallops ABDOMEN: Soft, nontender, normoactive bowel sounds. No guarding, no rebound. No masses EXTREMITIES: Normal range of motion, no edema. No clubbing or cyanosis. No cords, erythema, or tenderness NEUROLOGICAL: Cranial nerves II through XII grossly intact. Normal speech. + Antalgic gait. Motor and sensation intact SKIN: Warm, Dry, normal turgor, no rashes. +Abrasions to knees B/L. - Medical Decision Making Pt with exacerbation of chronic pain. Refused NSAID for pain (she received toradol on multiple prior ED visits). She stated she was given demerol once in the past in this ED (I did a chart review and saw one dose of dilaudid IM in 2016- I explained this to her). She declined to take a muscle relaxer or percocet, stating that she has percocet and that it does not work, and that she has a contract with her pain mgmt center. She did agree to try a lidoderm patch in ED, I will send her a prescription if it helps. Gave a dose of morphine IM. I explained that this is only temporary, and that in about 6 hours she will likely have similar pain. She requested to be discharged shortly after receiving medication, driven by a friend.
[2019-03-08] MEDS ORDERED: LIDOCAINE 5% TOPICAL PATCH TP ONE ×2 (11:46→12:02)
[2019-03-08] MEDS ORDERED: KETOROLAC TROMETHAMINE 30 MG/1 ML VIAL IM ONE (11:46)
[2019-03-08 11:47] VITALS: BP 125/86; PULSE 90; TEMP 100.1; BMI 21.4
[2019-03-08] MEDS ORDERED: METHOCARBAMOL 750 MG TAB PO ONE (11:47)
[2019-03-08] MEDS ORDERED: morphine CARPU-JECT 2 MG/1 ML DISP.SYRIN IM ONE (11:50)
[2019-03-08] MEDS ORDERED: morphine SULFATE 4 MG/ML VIAL ONE (11:52)
[2019-03-08] MEDS ORDERED: LIDOCAINE 5% TOPICAL PATCH ONE (12:06)
[2019-03-08] MEDS ORDERED: LIDOCAINE PATCH REMOVAL MC SCH ×2 (22:00)
== END 2019-03-08 12:14 | disposition home or self-care (01) ==
LOC: FER 11:24 → SUPCPDRO 11:24 → FER 12:14
PROC: 3E0233Z Introduction of Anti-inflammatory into Muscle, Percutaneous Approach (ICD-10-PCS; principal; 2019-03-08)
DX: M54.31 Sciatica, right side (principal); E78.00 Pure hypercholesterolemia, unspecified; F32.9 Major depressive disorder, single episode, unspecified; B18.2 Chronic viral hepatitis C
CPT/HCPCS: 99282-25

== ENCOUNTER 2020-01-14 15:46 | Emergency (ER) | payer OTHER ==
--- NOTE | 2020-01-14 15:54 | PDOC ---
Attending Attestation - Resident Resident Name: YoannamarkGaurav - ED Attending Attestation I have performed the following: I have examined & evaluated the patient, The case was reviewed & discussed with the resident, I agree w/resident's findings & plan, Exceptions are as noted - HPI HPI: 01/14/20 18:24 Tripped over the door jam several days ago, injuring her right elbow, left foot, and low back. Pain in these areas has persisted, and she has developed numbness and tingling in the fourth and fifth digits of her right hand, along with weakness of the hand itself. Denies pain or injury to the head or neck. There was no loss of consciousness, confusion, or excessive drowsiness. Past history is significant for multiple orthopedic injuries, including lumbar discectomy, and the patient uses a cane for ambulation at all times. 01/14/20 18:28 - Physicial Exam PE: 01/14/20 18:25 Physical exam reveals alert and oriented female in no obvious distress, cooperative Afebrile, vital signs normal Head and neck without visible or palpable trauma. Full range of motion of the cervical spine without pain. Right elbow: Diffuse swelling, tenderness, without localization. No deformity, and there is full range of motion in flexion and extension without limitation. Left foot: Erythema, warmth, and swelling, with edema, dorsal lateral foot. No abrasion, puncture, or laceration of the skin. No deformity. Significant tenderness is present over the fourth and fifth metatarsals. No ankle instability, deformity, or point tenderness over the malleoli. Pulses full. No distal sensory or motor deficits. LS spine: Straightening of the normal lumbar lordosis. Old scar from prior disc surgery. Significant paravertebral muscle spasm and tenderness. No radicular symptoms. Pulses to the lower extremities full. No sensory or motor deficits to the legs. No radiating pain to the legs. - Medical Decision Making 01/14/20 18:29 Assessment: X-rays of the foot, elbow, and LS-spine negative for fracture, dislocation, or other bone anomaly. Incidentally noted is large collection of stool throughout the intestines, and the patient admits constipation, but with no discomfort. Plan: Swelling of the foot, with heat and erythema, as well as edema, cannot be attributed to fracture. It seems more excessive than the information from a ligament injury would reduce. Consider early cellulitis. Otherwise neuropathy in the upper extremity is likely due to swelling from a sprained elbow, which should resolve rapidly. This will require close observation and follow-up, and orthopedist referral was made for 2 to 3 days. LS spine appears to be mostly muscle spasm and should also respond to heat. Patient however, refuses muscle relaxant medication or stronger analgesics. Antibiotics prescribed for possible cellulitis and close follow-up with primary physician was recommended. Fully ambulatory and in no significant pain at discharge to follow-up as directed. Initial dose of antibiotic was given prior to discharge.
[2020-01-14 16:01] VITALS: BP 117/72; PULSE 79; TEMP 97.7; BMI 22.1
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
[2020-01-14] MEDS ORDERED: KETOROLAC TROMETHAMINE 30 MG/1 ML VIAL IM ONE (16:34)
[2020-01-14] MEDS ORDERED: KETOROLAC TROMETHAMINE 30 MG/1 ML VIAL ONE (16:38)
[2020-01-14] MEDS ORDERED: CEPHALEXIN MONOHYDRATE 500 MG CAPSULE (UD) PO ONE (18:05)
[2020-01-14] MEDS ORDERED: CEPHALEXIN MONOHYDRATE 500 MG CAPSULE (UD) ONE (18:08)
== END 2020-01-14 18:13 | disposition home or self-care (01) ==
LOC: FER 15:46
PROC: 3E0233Z Introduction of Anti-inflammatory into Muscle, Percutaneous Approach (ICD-10-PCS; principal; 2020-01-14)
DX: M25.521 Pain in right elbow (principal); M79.89 Other specified soft tissue disorders; W18.39XA Other fall on same level, initial encounter; Y93.89 Activity, other specified; Y92.89 Other specified places as the place of occurrence of the external cause; Z88.2 Allergy status to sulfonamides; Z88.8 Allergy status to other drugs, medicaments and biological substances; F17.210 Nicotine dependence, cigarettes, uncomplicated; B19.20 Unspecified viral hepatitis C without hepatic coma; F32.9 Major depressive disorder, single episode, unspecified; E78.00 Pure hypercholesterolemia, unspecified
CPT/HCPCS: 72100-TC-FY; 73070-TC-RT-FY; 73610-TC-LT-FY; 73630-TC-LT; 99284-25

== ENCOUNTER 2020-05-09 17:10 | Emergency (ER) | payer OTHER ==
[2020-05-09 17:24] VITALS: TEMP 100; BMI 21.9
[2020-05-09] MEDS ORDERED: SODIUM CHLORIDE 0.9% 500 ML INFUS.BAG IV ONE (17:51)
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
[2020-05-09] MEDS ORDERED: ACETAMINOPHEN 325 MG TABLET (FP) PO ONE (18:03)
--- NOTE | 2020-05-09 18:13 | PDOC ---
History of Present Illness - General Chief Complaint: Altered Mental Status Stated Complaint: R/O STROKE Time Seen by Provider: 05/09/20 17:38 History Source: Patient Exam Limitations: Clinical Condition (AMS) - History of Present Illness Initial Comments: HPI: This is a 59 y/o female w/ a PMH of opiate use, basal ganglia hemorrhage, and AMS per chart review presenting to the ED today due to altered mental status. She was unable to give an accurate history of the events leading up to her visit, and was unable to state how she arrived at the emergency department. The patient admits to pain in her left wrist, left shoulder, right ankle, and lumbar spine. She stated that she fell earlier, but couldn't describe what happened. Patient lives alone in an apartment. She said that she has a history of falls. Patient denied headache, chest pain, SOB, abdominal pain. ROS: General: No fevers or chills, no weakness HEENT: No blurry vision CardioVascular: No chest pain or shortness of breath Respiratory:No cough, or wheezing. Gastrointestinal: no nausea, vomiting Genitourinary: No dysuria Musculoskeletal: Pain in left wrist and right ankle Neurologic: No headache, dizziness or loss of consciousness PMH: Right basal ganglia hemorrhage in April 2020 Meds: See nurse notes Allergies: See nurse notes PE: GENERAL: Awake, alert. In no acute distress HEAD: No signs of trauma EYES: Pupils constricted, EOMI NECK: Normal ROM, supple LUNGS: Breath sounds equal, clear to auscultation bilaterally. No wheezes, and no crackles HEART: Regular rate and rhythm, normal S1 and S2, no murmurs, rubs or gallops ABDOMEN: Soft, nontender. No guarding, no rebound. No masses EXTREMITIES: Normal range of motion. Chronically swollen right ankle. Left shoulder and left wrist with abrasions. NEURO: NIHH stroke scale 0. Patient is confused. Sporadic jerking movements. MDM: This is a 59 y/o F presenting to the ED due to AMS. The patient didn't admit to taking any medications, or any head trauma. Read on CT for acute hemorrhage in the right caudate nucleus and anterior limb of internal capsule. Dr. Jennifer Contreras neurosurgery consulted Patient is going to be transferred to [facility] 05/09/20 21:27 tPA Exclusion checklist 3-4.5h - Time Elapsed Date last known well: 05/09/20 Time last known well: 14:00 Elaspsed time: Day(s) and 9 Hour(s) and 28 Minutes - Thrombolytic Therapy Candidate Is patient eligible for thrombolytic therapy: No - Exclusion Criteria 3-4.5 hr SBP greater than 185 or DBP greater than 110mmHg despite tx: No Recent IC/spinal surgery,head trauma or stroke<3mos.: Yes Hx IC hemorrhage, IC neoplasm, AV malformation or aneurysm: Yes Active internal bleeding: No Blding diathesis(low plt ct, inc PTT,INR>1.7 or use of NOAC): No Symptoms suggest subarachnoid hemorrhage: Yes CT demonstrates multilobar infarct(>1/3 cerebral hemiphere): No Arterial puncture at noncompressible site in previous 7 days: No Blood glucose concentration less than 50mg/dL (2.7mmol/L): No - Relative Exclusion Criteria 3-4.5 hr Care team unable to determine eligibility: No IV/IA thrombolysis/thrombectomy @ another hosp prior arrival: No Life expectancy <1 yr or severe co-morbid illness: No : No Patient/family refused: No Stroke severity too mild (non-disabling): Yes Recent acute NE (w/in previous 3 months): No Seizure at onset with postictal residual neuro impairments: No Major surgery or serious trauma w/in previous 14 days: No Recent GI or hemorrhage (w/in previous 21 days): No - Add'l Relative Exclusion 3-4.5 hr Age > 80: No Hx of both diabetes AND prior ischemic stroke: No Taking an oral anticoagulant regardless of INR: No Severe Stroke (NIHSS >25): No - Ineligibility reason(s) Reasons No tPA given: See reason(s) noted above (she is bleeding) NIH Stroke Scale - Last Known Well Date/Time & Onset Date Last Known Well: 05/09/20 Time Last Known Well: 14:00 - Initial Evaluation Level of consciousness: Alert Ask patient the month and their age: Answers both correctly Ask patient to open & close eyes; make fist and let go: Obeys both correctly Best gaze (horizontal eye movement): Normal Visual field testing: No visual field loss Facial paresis (Show teeth/raise eyebrows/close eyes tight): Normal symmetrical movement Motor Function: Left Arm: Normal Motor Function: Right Arm: Normal (extends arm 90 (or 45) degrees for 10 seconds without drift Motor Function: Left Leg: Normal (extends leg 30 degrees for 5 seconds without drift) Motor Function: Right Leg: Normal (extends leg 30 degrees for 5 seconds without drift) Limb Ataxia: No ataxia Sensory(Use pinprick test arms,legs,trunk,face/side to side): Normal Best language (Describe picture, name items, read sentences): No Aphasia Dysarthria (read several words): Normal articulation Extinction and Inattention: No abnormality (No focal defecits, no TPA) - Total Score NIH Stroke Scale Score: 0 Past History - Medical History Allergies/Adverse Reactions: Allergies Allergy/AdvReac Type Severity Reaction Status Date / Time Sulfa (Sulfonamide Allergy Mild Rash Verified 04/14/20 11:13 Antibiotics) naproxen [From Naprosyn] Allergy Rash Verified 04/14/20 11:13 Home Medications: Ambulatory Orders Oxycodone HCl/Acetaminophen [Percocet 5-325 mg Tablet] 1 tab PO Q4H PRN 01/03/19 Atorvastatin Calcium [Lipitor] 10 mg PO DAILY 03/08/19 Paroxetine HCl [Paxil -] 60 mg PO DAILY 03/08/19 NK [No Known Home Medication] 04/10/20 Cancer: (LIPOMA REMOVED) COPD: No Hypercholesterolemia: Yes Liver Disease: Yes (HEP C. TREATED) Psychiatric Problems: Yes (DEPRESSION) - Immunization History Td Vaccination: Yes - Psycho-Social/Smoking History Smoking Status: Yes Smoking History: Current every day smoker Have you smoked in the past 12 months: Yes Number of Cigarettes Smoked Daily: 20 Information on smoking cessation initiated: No 'Breaking Loose' booklet given: 07/23/17 - Substance Abuse Hx (Audit-C & DAST Scrn) How often the patient has a drink containing alcohol: Never Score: In Men: 4 or > Positive; In Women: 3 or > Positive: 0 Screen Result (Pos requires Nsg. Audit-10AR): Negative In the last yr the pt used illegal drug/Rx for NonMed reason: No Score: Yes response is considered Positive: 0 Screen Result (Positive result requires Nsg. DAST-10): Negative *Physical Exam - Vital Signs Last Vital Signs Temp Pulse Resp BP Pulse Ox 100 F H 98 H 20 112/71 97 05/09/20 17:22 05/09/20 17:22 05/09/20 17:22 05/09/20 17:22 05/09/20 17:22 ED Treatment Course - LABORATORY CBC & Chemistry Diagram: 05/09/20 18:25 05/09/20 18:25 - RADIOLOGY Radiology Studies Ordered: Category Date Time Status HEAD CT WITHOUT CONTRAST [CT] Stat CT Scan 05/09/20 17:50 Ordered CHEST X-RAY PORTABLE* [RAD] Stat Radiology 05/09/20 17:49 Ordered Discharge - Discharge Information Problems reviewed: Yes Clinical Impression/Diagnosis: Hemorrhage in caudate nucleus Condition: Guarded Disposition: TRANSFER ACUTE CARE/OTHER HOSP - Admission No - Follow up/Referral - Patient Discharge Instructions - Post Discharge Activity - Transfer to Acute Care Facility Receiving Facility Name: [facility]
[2020-05-09 18:51] LABS: BASO % 0.4 % (0-2.0); EOS % 0.6 % (0-4.5); HEMATOCRIT 46.3 % (32.4-45.2); HEMOGLOBIN 15.5 GM/dL (10.7-15.3); LYMPH % 12.7 % (8-40); MCH 31.7 pg (25.7-33.7); MCHC 33.4 g/dl (32.0-36.0); MEAN CELL VOLUME 94.8 fl (80-96); MEAN PLT VOLUME 7.8 fl (7.5-11.1); NEUT % 79.3 % (42.8-82.8); PLATELET COUNT 326 K/MM3 (134-434); RBC 4.89 M/mm3 (3.60-5.2); RDW 16.5 % (11.6-15.6)
[2020-05-09 18:58] LABS: INR 0.98 (0.83-1.09); PROTHROMBIN TIME (PATIENT) 11.6 SEC (9.7-13.0)
[2020-05-09 19:00] LABS: ACTIVATED PTT 35.7 SECONDS (25.2-36.5)
[2020-05-09 19:13] LABS: ANISOCYTOSIS 0; MACROCYTOSIS 0; PLATELET ESTIMATE NORMAL
[2020-05-09 19:30] LABS: ALBUMIN 3.8 g/dl (3.4-5.0); ALK PHOS 118 U/L (45-117); ANION GAP 10 MMOL/L (8-16); BILIRUBIN,TOTAL 1.1 mg/dL (0.2-1); BLOOD UREA NITROGEN 12.7 mg/dL (7-18); CALCIUM 10.2 mg/dL (8.5-10.1); CHLORIDE 100 mmol/L (98-107); CO2 27 mmol/L (21-32); CREATININE 0.9 mg/dL (0.55-1.3); GLUCOSE,RANDOM 91 mg/dL (74-106); POTASSIUM 4.7 mmol/L (3.5-5.1); SGPT/ALT 113 U/L (13-61); SODIUM 137 mmol/L (136-145); TOT PROT 7.3 g/dl (6.4-8.2)
[2020-05-09 19:35] LABS: SGOT/AST 35 U/L (15-37)
[2020-05-09 20:19] LABS: HCG,QUALITATIVE URINE Negative
[2020-05-09 20:20] LABS: COCAINE, UR NEGATIVE ng/ml (CUTOFF=300); EPI CELLS >36 /uL (0-25.1); HYALINE CASTS 4 /uL (0-3.1); METHADONE, UR NEGATIVE ng/ml (CUTOFF=300); OPIATES, URI NEGATIVE ng/ml (CUTOFF=300); PH,URINE 6.5 (5.0-8.0); PHENCYCLIDINE,URINE NEGATIVE ng/ml (CUTOFF=25); URINE APPEARANCE CLEAR; URINE BACTERIA 65 /uL (0-1359); URINE BARBITURATES NEGATIVE ng/ml (CUTOFF=200); URINE BENZODIAZEPINES NEGATIVE ng/ml (CUTOFF=200); URINE BILIRUBIN NEGATIVE (NEGATIVE); URINE COLOR YELLOW; URINE GLUCOSE (UA) NEGATIVE (NEGATIVE); URINE KETONE NEGATIVE (NEGATIVE); URINE LEUK ESTERASE 1+ (NEGATIVE); URINE NITRITE NEGATIVE (NEGATIVE); URINE PROTEIN TRACE (NEGATIVE); URINE RBC 32 /uL (0-23.9); URINE UROBILINOGEN 0.2 mg/dL (0.2-1.0); URINE WBC 45 /uL (0-25.8)
[2020-05-09 20:51] LABS: URINE AMPHETAMINES NEGATIVE ng/ml (CUTOFF=500)
[2020-05-09 21:02] VITALS: BP 111/76; PULSE 92
[2020-05-09] MEDS ORDERED: levETIRAcetam 500 MG/5 ML INJECTION VIAL IVPB ONE ×2 (21:10→21:11)
--- NOTE | 2020-05-10 10:23 | EKG ---
Test Reason : Blood Pressure : / mmHG Vent. Rate : 081 BPM Atrial Rate : 081 BPM P-R Int : 156 ms QRS Dur : 122 ms QT Int : 408 ms P-R-T Axes : 059 063 074 degrees QTc Int : 473 ms NORMAL SINUS RHYTHM POSSIBLE LEFT ATRIAL ENLARGEMENT NON-SPECIFIC INTRA-VENTRICULAR CONDUCTION DELAY BORDERLINE ECG WHEN COMPARED WITH ECG OF 03-MAY-2010 13:06, QRS DURATION HAS INCREASED Confirmed by Amanda Cruz ([id number]) on 05/10/2020 10:23:03 AM Referred By: Confirmed By:Amanda Cruz
== END 2020-05-09 21:26 | disposition short-term general hospital (02) ==
LOC: JER 17:10
PROC: 3E033NZ Introduction of Analgesics, Hypnotics, Sedatives into Peripheral Vein, Percutaneous Approach (ICD-10-PCS; principal; 2020-05-09)
PROC: 3E033GC Introduction of Other Therapeutic Substance into Peripheral Vein, Percutaneous Approach (ICD-10-PCS; 2020-05-09)
PROC: 3E0337Z Introduction of Electrolytic and Water Balance Substance into Peripheral Vein, Percutaneous Approach (ICD-10-PCS; 2020-05-09)
DX: I61.0 Nontraumatic intracerebral hemorrhage in hemisphere, subcortical (principal)
CPT/HCPCS: 36415; 70450-TC; 71045-TC-FY; 72125-TC; 72131-TC; 73030-TC-LT-FY; 73110-TC-LT-FY; 73130-TC-LT-FY; 73610-TC-RT-FY; 73630-TC-RT-FY; 80053; 80307; 81003; 82550; 84484; 84703; 85025; 85610; 85730; 87086; 93005; 93010; 99285-25

== ENCOUNTER 2020-05-18 12:17 | Emergency (ER) | payer OTHER ==
[2020-05-18 12:33] VITALS: BP 113/76; PULSE 76; TEMP 98.8; BMI 25.0
--- NOTE | 2020-05-18 13:20 | PDOC ---
History of Present Illness - General Chief Complaint: Edema Stated Complaint: RIGHT GROIN SWOLLEN S/P ANGIOGRAM Time Seen by Provider: 05/18/20 12:37 - History of Present Illness Initial Comments: 05/18/20 13:10 59 years old with past medical history significant for high cholesterol, recent "hemorrhagic brain bleed" 1-1/2 weeks ago, angiography through right groin done by neurosurgeon last Sunday discharge on not on any anticoagulation presents to the emergency department complaining of swelling and a small amount of white discharge from the catheterization site No fevers no chills no streaking red lines unable to follow-up with her doctor that performed the procedure Symptoms are mild persistent constant no exacerbating relieving factors Past History - Medical History Allergies/Adverse Reactions: Allergies Allergy/AdvReac Type Severity Reaction Status Date / Time Sulfa (Sulfonamide Allergy Mild Rash Verified 04/14/20 11:13 Antibiotics) naproxen [From Naprosyn] Allergy Rash Verified 04/14/20 11:13 Home Medications: Ambulatory Orders Atorvastatin Calcium [Lipitor] 10 mg PO DAILY 03/08/19 Paroxetine HCl [Paxil -] 60 mg PO DAILY 03/08/19 Amoxicillin/Potassium Clav [Augmentin 875-125 Tablet] 1 each PO BID 7 Days #14 tablet 05/18/20 Cancer: (LIPOMA REMOVED) COPD: No Hypercholesterolemia: Yes Liver Disease: Yes (HEP C. TREATED) Psychiatric Problems: Yes (DEPRESSION) - Immunization History Td Vaccination: Yes - Psycho-Social/Smoking History Smoking Status: Yes Smoking History: Current every day smoker Have you smoked in the past 12 months: Yes Number of Cigarettes Smoked Daily: 10 Information on smoking cessation initiated: Yes 'Breaking Loose' booklet given: 07/23/17 - Substance Abuse Hx (Audit-C & DAST Scrn) How often the patient has a drink containing alcohol: Monthly or less Score: In Men: 4 or > Positive; In Women: 3 or > Positive: 1 Screen Result (Pos requires Nsg. Audit-10AR): Negative In the last yr the pt used illegal drug/Rx for NonMed reason: No Score: Yes response is considered Positive: 0 Screen Result (Positive result requires Nsg. DAST-10): Negative *Physical Exam - Vital Signs Last Vital Signs Temp Pulse Resp BP Pulse Ox 98.8 F 76 16 113/76 98 05/18/20 12:19 05/18/20 12:19 05/18/20 12:19 05/18/20 12:19 05/18/20 12:19 - Physical Exam 05/18/20 13:35 Vitals: Triage Vital signs reviewed General Appearance: No acute distress, well nourished well developed, Head: Atraumatic, Cardiac: Regular rate and rhythym, no murmurs, no rubs, no gallops, Lungs: Clear to auscultation bilateral, good air movement bilaterally, Abdomen: Soft, non distended, normal bowel sounds, non tender to palpation the renal: If it is positive the area get a call Extremities: Full range of motion to all extremities, no cyanosis, clubbing, or edema Skin: Status post catheterization to right groin surrounding ecchymosis small amount of serosanguineous discharge at catheterization site no pus no warmth no redness, no pulsatile mass, neurovascular intact distally Psych: Normal mood, normal affect ED Treatment Course - RADIOLOGY Radiology Studies Ordered: Category Date Time Status SOFT TISSUE EXTREMITY US [US] Stat Ultrasound 05/18/20 12:55 Ordered Medical Decision Making - Medical Decision Making 05/18/20 13:36 59 years old status post recent catheterization concern for infection at catheterization site secondary to a small amount of discharge. Here in the emergency department no purulent discharge. Small amount of serosanguineous discharge Neurovascularly intact distally to the catheterization site no pulsatile mass noted no evidence of cellulitis or abscess on my physical exam Recommended that patient obtain an ultrasound of the groin to rule out abscess versus aneurysm versus pseudoaneurysm however patient does not want to stay for examination states she is tired and she will follow-up with her doctor. Is agreeable to taking antibiotics Will call in 1 week prescription of antibiotics Augmentin for patient recommend that she follow-up with the neurosurgeon who performed the procedure either today or tomorrow otherwise return to the ED for the completion of her examination Despite 10 minutes at the bedside I was unable to finish the patient to stay in the emergency department risks and benefits explained patient is free from distracting injury The patient is presenting with concern for infection of catheterization site. I am concerned that this may be infection versus aneurysm versus pseudoaneurysm the patient has verbalized understanding of my concerns. The patient is clinically sober and appears free from distracting injury. The patient appears to have intact insight, judgment, and reason. In my opinion, this patient has the capacity to make decisions The risks of leaving against medical advice without further evaluation treatment were discussed with the patient. These risks include infection, , permanant disability. The patient indicated understanding of these risks and appeared to have the capacity to make this decision. The patient is unwilling to stay for a an ultrasound patient is unwilling to remain for additional monitoring. She is refusing further care and leaving against medical advice I'm unable to convince the patient to stay. I have asked the patient to return as soon as possible to complete her evaluation Discharge - Discharge Information Problems reviewed: Yes Clinical Impression/Diagnosis: Groin discomfort Qualifiers: Laterality: right Qualified Code(s): R10.31 - Right lower quadrant pain Condition: Stable Disposition: HOME - Admission No - Additional Discharge Information Prescriptions: Amoxicillin/Potassium Clav [Augmentin 875-125 Tablet] 1 each PO BID 7 Days #14 tablet - Follow up/Referral - Patient Discharge Instructions Patient Printed Discharge Instructions: DI for Angiography Additional Instructions: Apply bacitracin and keep covered twice a day. Apply warm compresses to affected area. Take antibiotics as prescribed. You must follow-up with your neurosurgeon to perform the procedure today or tomorrow to have the site reevaluated. Return to ED for any concerns or if you would like to complete your evaluation. It was recommended that you have an ultrasound performed to evaluate for abscess, aneurysm, pseudoaneurysm. We cannot rule out any of these without this ultrasound You are more than welcome to return to the ED at any time to complete your exam - Post Discharge Activity
== END 2020-05-18 13:42 | disposition home or self-care (01) ==
LOC: FER 12:17
DX: R10.31 Right lower quadrant pain (principal)
CPT/HCPCS: 99283-25

== ENCOUNTER 2020-08-07 12:31 | Emergency (ER) | payer OTHER ==
[2020-08-07 12:54] VITALS: BP 145/65; PULSE 73; TEMP 98; BMI 21.9
--- OUTSIDE RECORDS SUMMARY | 2020-08-07 12:56 | XMS ---
:1960 [facility] Providers Name Role Phone Chon Smith MD Unavailable Unavailable ALBARO Unavailable Unavailable KRUNAL LOUIS Unavailable Unavailable Susy Mata MD Unavailable Unavailable EMERGENCY SERVICE, X Unavailable Unavailable DAVID CASE Unavailable Unavailable MP QUINONEZ Unavailable Unavailable CARLOS PETERSEN Unavailable Unavailable Mario Grewal MD Unavailable Unavailable JUMANA العراقي Unavailable Unavailable Re-disclosure Warning The records that you are about to access may contain information from federally- assisted alcohol or drug abuse programs. If such information is present, then the following federally mandated warning applies: This information has been disclosed to you from records protected by federal confidentiality rules (42 CFR part 2). The federal rules prohibit you from making any further disclosure of this information unless further disclosure is expressly permitted by the written consent of the person to whom it pertains or as otherwise permitted by 42 CFR part 2. A general authorization for the release of medical or other information is NOT sufficient for this purpose. The Federal rules restrict any use of the information to criminally investigate or prosecute any alcohol or drug abuse patient.The records that you are about to access may contain highly sensitive health information, the redisclosure of which is protected by Article 27-F of the [facility] Public Health law. If you continue you may haveaccess to information: Regarding HIV / AIDS; Provided by facilities licensed or operated by the [facility] Office of Mental Health; or Provided by the [facility] Office for People With Developmental Disabilities. If such information is present, then the following [facility] mandated warning applies: This information has been disclosed to you from confidential records which are protected by state law. State law prohibits you from making any further disclosure of this information without the specific written consent of the person to whom it pertains, or as otherwise permitted by law. Any unauthorized further disclosure in violation of state law may result in a fine or assisted sentence or both. A general authorization for the release of medical or other information is NOT sufficient authorization for further disclosure. 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 Antibiotics) (Sulfonamide Hospital Antibiotics) Encounters Encounter Providers Location Date Indications Data Source(s ) Inpatient Attender: NICOLA 05/10/2020 [place] [facility] STEPHENAttender: 03:23:00 AM [facility] GIOVANNA QUINONEZ - [facility] FAWAZAttender: 05/13/2020 HERIBERTO, 03:57:00 PM CLIFFINAdmitter: ED KRUNAL LOUIS Enoch Patient admitted. Emergency Attender: EMERGENCY 05/10/2020 12:11:00 [facility] SERVICE, XAdmitter: AM [facility] EMERGENCY SERVICE, X Zunilda oration TRANSFER Outpatient Attender: EVIE 03/25/2020 03:09:00 Z01.84 [facility] DAVID KirbyAdmitter: PM [facility] DAVID CASE Corporprasanth n ESoniaReferrer: DAVID CASE Z01.84 Outpatient Attender: EVIE 03/25/2020 10:24:00 Z01.84 [facility] DAVID KirbyAttender: AM [facility] KARAdmitter: Dimitris CASEReferrer: DAVID CASE Z01.84 Outpatient Attender: Tab 03/08/2020 09:28:00 AM F[facility]U [facility] Adolfo GREER EDT F/U Outpatient Attender: Senthil 08/01/2019 07:30:00 HERNIATED LUMBAR [place] Uri GREER AM EDT - 08/01/2019 DISC Hospi sarah 05:37:00 AM EDT HERNIATED LUMBAR DISC Patient discharged. Outpatient Attender: Dasha 07/25/2019 11:27:00 HERNIATIO N [facility] Lieber ELDER ASSISTANT AM EDT Hospital HERNIATION Outpatient Attender: Chon 06/26/2019 04:30:00 GI BLEEDING [facility] Gendler MD PM EDT - 06/26/2019 Hospi sarah 02:24:00 PM EDT GI BLEEDING Patient discharged. Outpatient Attender: Dasha 05/14/2019 01:00:00 PM [facility]EN [facility] ELDER ASSISTANT EDT Hospital SCREENING Outpatient 03/03/2019 01:30:00 PM EDT SCIATICA [facility] SCIATICA Functional Status Medications Medication Brand Start Product Dose Route Administrative Pharmacy atus Indications Reaction Description Data Name Date Form Instructions Instructions Source(s) Acetaminoph Oxycod 08/01/ TABLET 1 ORAL complet [place] 325 MG / one/Ac 2018 {[facility] s Oxycodone etamin 09:49: ule} Hospit al Hydrochlori ophen 00 AM de 5 MG EDT Oral Tablet [Percocet] Oxycodone/A cetaminophe n Trazodone TABLET 50 mg ORAL complet Whit e [facility] Acetaminoph Percoc 999 oral complet Percocet [place] 325 MG / et MG ed r [facility] Hydrochlor[facility] Care de 5 MG Corporatio Oral Tablet n [Percocet] atorvastati Lipito 999 oral complet Lipitor [place] 10 MG r MG ed r [facility] Oral Tablet Health [Lipitor] Care Corporatio n Calcium/Vit TABLET 1 ORAL complet Whi te parada D {[facility] ule} [facility] Paroxetine TABLET 60 mg ORAL complet Whi te [facility] Acetaminoph Oxycod TABLET 1 ORAL complet [place] en 325 MG / one/Ac {[facility] [place] [place] [facility] Oxycodone etamin ule} [facility] Hydrochlori ophen de 5 MG Oral Tablet [Percocet] Oxycodone/A cetaminophe n Aspirin 81 Aspir- complet [place] MG Delayed 81 ed r [facility] Release (Aspir Health Oral Tablet in) Care Aspir-81 [81 Corporatio (Aspirin) mg]: 1 n [81 mg]: 1 Tablet Tablet Oral Oral DAILY DAILY Trazodone TABLET 50 mg ORAL complet Whit e [facility] pregabalin Pregab CAPSULE 50 mg ORAL complet [facility] 50 MG [facility] [Lyrica] Pregabalin Calcium/Vit TABLET 1 ORAL complet Whi te parada D {[facility]} [facility] Acetaminoph Oxycod TABLET 1 ORAL complet [place] 325 MG / one/Ac {[facility] Oxycodone etamin [facility]} [facility] Hydrochlori ophen de 5 MG Oral Tablet [Percocet] Oxycodone/A cetaminophe n Paroxetine TABLET 30 mg ORAL complet Whi te [facility] pantoprazol Pantop complet Adin tcheste e 40 MG razole [facility] Delayed [40 mg Health Release TABLET Care Oral Tablet DR]: 1 Corpor atio Pantoprazol Tablet n e [[address]]: Q10AM 1 Tablet Oral Q10AM Unable to Unable 999 UNK discont Unable to [facility] Obtain/Drug to MG inued Obtain/Drug r [facility] Names Obtain Names Health Unknown /Drug Unknown Care Names Corporatio Unknow n n pregabalin Pregab CAPSULE 50 mg ORAL complet White 50 MG Oral [facility] [Lyrica] Pregabalin atorvastati Atorva TABLET 10 mg ORAL complet White n 10 MG statin ed [place] Oral [facility] [Lipitor] m Atorvastati n Calcium Simvastatin Simvas complet Adin tcheste 20 MG Oral tatin [facility] Tablet [20 mg Health Simvastatin Tablet Care [20 mg ]: 20 Corporatio Tablet]: 20 MG n MG Oral Oral Q10PM Q10PM Multivitami TABLET 1 ORAL complet Whi te n {[facility]} [facility] Multivitami TABLET 1 ORAL complet Whi te n [facility] Paroxetine Paxil 999 oral complet Paxil [place] 10 MG Oral MG ed [facility] Tablet Health [Paxil] Care Corporatio n Paroxetine TABLET 30 mg ORAL complet Whi te [facility] Insurance Providers Payer name Policy type Policy ID Covered Covered libertarian's Policy P pat / Coverage libertarian ID relationship to [facility] ormation type parker MEDICARE [id number] SP [id number] MEDICARE [id number] SP [id number] 80 [id number] MEDICARE [id number] OT [id number] 80 0 UNK UNK UNK SELF PAY SP INSURANCE MEDICAID [id number] PT [id number] MEDICARE [id number] PT [id number] 80 0 MEDICARE [id number] SP [id number] 80 0 MEDICAID [id number] PT [id number] MEDICAID [id number] SP [id number] Problems, Conditions, and Diagnoses Code Display Name Description Problem Type Effective Data Sour ce(s) Dates Z20.828 Contact with and CONTACT W AND Diagnosis 05/13/2020 [facility] germán (suspected) exposure EXPOSURE TO OTH 03:57:00 P [facility] to other viral VIRAL EDT Care communicable COMMUNICABLE Corporatio n diseases DISEASES R27.8 Other lack of OTHER LACK OF Diagnosis 05/13/2020 [facility] coordination COORDINATION 03:57:00 PM [facility] EDT Care [employer] Z88.2 Allergy status to ALLERGY STATUS TO Diagnosis 05/13/2020 [place] sulfonamides status SULFONAMIDES 03:57:00 PM Co un[facility] Health STATUS EDT Care [employer] Z88.6 Allergy status to ALLERGY STATUS TO Diagnosis 05/13/2020 [place] analgesic agent ANALGESIC AGENT 03:57:00 PM Cou nty Health status STATUS EDT Care [employer] R29.707 NIHSS score 7 NIHSS SCORE 7 Diagnosis 05/13/2020 [facility] 03:57:00 PM [facility] EDT Care [employer] F32.9 Major depressive MAJOR DEPRESSIVE Diagnosis 05/13/2020 [place] [facility] disorder, single DISORDER, SINGLE 03:57:00 PM [employer] episode, unspecified EPISODE, EDT Care UNSPECIFIED [employer] F17.210 Nicotine dependence, NICOTINE Diagnosis 05/13/2020 [place] cigarettes, DEPENDENCE, 03:57:00 PM [facility] uncomplicated CIGARETTES, EDT Care UNCOMPLICATED [employer] I72.6 Aneurysm of ANEURYSM OF Diagnosis 05/13/2020 [place] vertebral artery VERTEBRAL ARTERY 03:57:00 PM [facility] Care Corporation B19.20 Unspecified viral UNSPECIFIED VIRAL Diagnosis 05/13/2020 [place] hepatitis C without HEPATITIS C 03:57:00 PM [facility] Health hepatic coma WITHOUT HEPATIC EDT Care [employer] Corporation E78.5 Hyperlipidemia, HYPERLIPIDEMIA, Diagnosis [facility]2020 [facility] UNSPECIFIED 03:57:00 PM [facility] EDT Care Corporation G89.29 Other chronic pain OTHER CHRONIC Diagnosis 05/13/2020 [place] PAIN 03:57:00 PM 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 05/13/2020 [place] substance dependence SUBSTANCE 03:57:00 PM [facility] Health with withdrawal, DEPENDENCE WITH EDT Car e unspecified WITHDRAWAL, UNSP Corpora tion Q28.3 Other malformations OTHER Diagnosis 05/13/2020 [facility] dunlap of cerebral vessels MALFORMATIONS OF 03:57:00 P [facility] CEREBRAL VESSELS EDT Care Corporation I62.9 Nontraumatic NONTRAUMATIC Diagnosis 05/13/2020 [facility] r intracranial INTRACRANIAL 03:57:00 PM [facility] hemorrhage, HEMORRHAGE, EDT Care unspecified UNSPECIFIED Corporation I63.9 Cerebral infarction, CEREBRAL Diagnosis 05/10/2020 [place] unspecified INFARCTION, 03:23:00 AM [facility] UNSPECIFIED EDT Care Corporation Z01.84 Encounter for ENCOUNTER FOR Diagnosis 03/25/2020 [facility] antibody response ANTIBODY RESPONSE 10:24:00 AM [facility] examination EXAMINATION EDT Care Corporation F17.210 Nicotine dependence, F17.210 Diagnosis 08/01/2019 [place] cigarettes, 05:36:00 AM Hospital uncomplicated EDT Z87.442 Personal history of Z87.442 Diagnosis 08/01/2019 [place] urinary calculi 05:36:00 AM Hospital EDT B18.2 Chronic viral B18.2 Diagnosis 08/01/2019 [place] hepatitis C 05:36:00 AM Hospital EDT Z88.2 Allergy status to Z88.2 Diagnosis 08/01/2019 [place] sulfonamides status 05:36:00 AM Hosp ital EDT Z79.899 Other longterm Z79.899 Diagnosis 08/01/2019 [place] (current) drug 05:36:00 AM Hospital therapy EDT M51.17 Intervertebral disc M51.17 Diagnosis 08/01/2019 [place] disorders with 05:36:00 AM Hospital radiculopathy, EDT lumbosacral region M51.26 Other intervertebral M51.26 Diagnosis 07/25/2019 [place] disc displacement, 11:27:00 AM Hospi sarah lumbar region EDT R91.8 Other nonspecific R91.8 Diagnosis 07/25/2019 [place] abnormal finding of 11:27:00 AM Hosp ital lung field EDT Z01.811 Encounter for Z01.811 Diagnosis 07/25/2019 [place] preprocedural 11:27:00 AM Hospital respiratory EDT examination F17.200 Nicotine dependence, F17.200 Diagnosis 06/26/2019 [place] unspecified, 02:23:00 PM Hospital uncomplicated EDT Z80.0 Family history of Z80.0 Diagnosis 06/26/2019 [place] malignant neoplasm 02:23:00 PM Hospi sarah of digestive organs EDT E78.00 Pure E78.00 Diagnosis 06/26/2019 [place] hypercholesterolemia 02:23:00 PM Hos pital , unspecified EDT K92.2 Gastrointestinal K92.2 Diagnosis 06/26/2019 [place] hemorrhage, 02:23:00 PM Hospital unspecified EDT K64.2 Third degree K64.2 Diagnosis 06/26/2019 [place] hemorrhoids 02:23:00 PM Hospital EDT Z72.0 Tobacco use Z72.0 Diagnosis 05/14/2019 [place] 12:37:00 PM Hospital EDT E04.2 Nontoxic E04.2 Diagnosis 05/14/2019 [place] multinodular goiter 12:37:00 PM Hosp ital EDT R92.2 Inconclusive R92.2 Diagnosis 05/14/2019 [place] mammogram 12:37:00 PM Hospital EDT Z12.31 Encounter for Z12.31 Diagnosis 05/14/2019 [place] screening mammogram 12:37:00 PM Hosp ital for malignant EDT neoplasm of breast M47.27 Other spondylosis M47.27 Diagnosis 03/03/2019 [place] with radiculopathy, 01:02:00 PM Hosp ital lumbosacral region EDT Surgeries/Procedures Procedure Description Date Indications Data Source(s) X-ray of lumbosacral spine 08/01/2019 [place] (procedure) 12:00:00 AM EDT Hospital Fluoroscopy (procedure) 08/01/2019 [place] 12:00:00 AM EDT Hospital Incentive spirometry 08/01/2019 [place] (regime/therapy) 12:00:00 AM EDT Hospital Oxygen therapy (procedure) 08/01/2019 [place] 12:00:00 AM EDT Hospital Diagnostic radiography of 07/25/2019 [place] chest, combined 12:00:00 AM EDT Hospital posteroanterior and lateral (procedure) Comprehen metabolic panel 07/25/2019 [facility] [place] 12:00:00 AM EDT Hospital Prothrombin time 07/25/2019 [place] 12:00:00 AM EDT Hospital Complete cbc w/auto diff 07/25/2019 [facility] te [place] wbc 12:00:00 AM EDT Hospital Thromboplastin time 07/25/2019 [place] partial 12:00:00 AM EDT Hospital Urinalysis auto w/o scope 07/25/2019 [facility] [place] 12:00:00 AM EDT Hospital X-ray exam chest 2 views 07/25/2019 i te [place] 12:00:00 AM EDT Hospital Results ID Date Data Source [id number] 07/31/2020 12:21:00 PM EDT [facility] Name Value Range Interpretation Description Data Sup porting Code Source(s) Document(s ) 2019 Novel [facility] Coronavirus RNA Interpretation Unspecified Specimen Qualitative NEHA Probe Detection This lab was ordered by [facility] Urgent [facility] and reported by [facility]. ID Date Data Source [id number] 07/31/2020 12:00:00 PM EDT [facility] Name Value Range Interpretation Description Data Sup porting Code Source(s) Document(s ) SARS [facility] coronavirus 2 RNA This lab was ordered by [facility] and reported by [facility]. ID Date Data Source [id number] 05/13/2020 02:59:00 AM EDT [facility] [id number] [facility] Name Value Range Interpretation Description Data Sup porting Code Source(s) Document(s ) Hemoglobin 14.6 g/dL 12.0-1 <td> 05/13/2020 [place] [Mass/volume] 6.0 02:59</td><td> [facility] in Blood g/dL HGB </td><td> Health [facility] Corporation 14.6
(12.0-16.0) g/dL </td> Erythrocytes 4.58 m/mm3 3.90-5 <td> 05/13/2020 [facility] [#/volume] in .20 02:59</td><td> [facility] Blood m/mm3 RBC </td><td> [facility] 4.58
(3.90-5.20) m/mm3 </td> Leukocytes 5.6 k/mm3 4.8-10 <td> 05/13/2020 [place] [#/volume] in .8 02:59</td><td> [facility] Blood by k/mm3 WBC </td><td> Health Care Automated count Corporation 5.6
(4.8-10.8) k/mm3 </td> Hematocrit 43.1 % 37.0-4 <td> 05/13/2020 [place] [Volume 7.0 % 02:59</td><td> [facility] Fraction] of HCT </td><td> Health Care Blood by Corporation Automated count 43.1
(37.0-47.0) % </td> Erythrocyte 94.1 fL 81.0-9 <td> 05/13/2020 [place] mean 9.0 fL 02:59</td><td> [facility] corpuscular MCV </td><td> Health Care volume [[employer] volume] by 94.1 Automated count
(81.0-99.0) fL </td> Erythrocyte 31.9 pg 27.0-3 <td> 05/13/2020 [place] mean 1.5 pg 02:59</td><td> [facility] corpuscular MCH Health Care hemoglobin </td><td><[employer] [Entitic mass] raph by Automated styleCode="Bold count "> 31.9 H </paragraph>
(27.0-31.5) pg </td> Erythrocyte 15.1 % 11.5-1 <td> 05/13/2020 [place] distribution 4.5 % 02:59</td><td> County width [Entitic RDW Health Care volume] by </td><td><[employer] Automated count raph styleCode="Bold "> 15.1 H </paragraph>
(11.5-14.5) % </td> Erythrocyte 33.9 % 32.0-3 <td> 05/13/2020 [place] mean 6.0 % 02:59</td><td> [facility] corpuscular MCHC </td><td> Health Care hemoglobin Corporation concentration 33.9 [Mass/volume] in Blood from
Fetus by (32.0-36.0) % Automated count </td> Platelet mean 10.0 fL 9.8-12 <td> 05/13/2020 [facility] r volume [Entitic .8 fL 02:59</td><td> [facility] volume] in MPV </td><td> Health Care Blood by [employer] Automated count 10.0
(9.8-12.8) fL </td> Platelets 252 k/mm3 160-41 <td> 05/13/2020 [place] [#/volume] in 0 02:59</td><td> [facility] Blood by k/mm3 Platelet Count Health Care Automated count </td><td> [employer] 252
(160-410) k/mm3 </td> Lymphocytes 30.7 % 17.0-5 <td> 05/10/2020 [place] [#/volume] in 0.0 % 04:38</td><td> [facility] Blood by Lymphocytes Health Care Automated count </td><td> [employer] 30.7
(17.0-50.0) % </td> Monocytes/Leuko 11.6 % 0.0-11 <td> 05/10/2020 [facility] cytes [Pure .0 % 04:38</td><td> County number Monocytes. Health Care fraction] in </td><td><[employer] Blood by raph Automated count styleCode="Bold "> 11.6 H </paragraph>
(0.0-11.0) % </td> Basophils 0.3 % 0.0-2. <td> 05/10/2020 [place] [#/volume] in 0 % 04:38</td><td> [facility] Blood by Basophils [facility] Automated count </td><td> [employer] 0.3
(0.0-2.0) % </td> Immature 0.6 % 0.0-0. <td> 05/10/2020 [place] granulocytes/10 5 % 04:38</td><td> [facility] 0 leukocytes in IG% Health Care Blood by </td><td><[employer] Automated count raph styleCode="Bold "> 0.6 H </paragraph>
(0.0-0.5) %
The IG fraction represents metamyelocytes, myelocytes and/or
promyelocytes and is only reported as part of the automated
differential when found at a percentage of less than 6.
If higher than 6%, a manual differential will be performed.

(0.0-0.5) % </td> Basophils+Eosin 1.0 % 0.0-5. <td> 05/10/2020 [facility] ophils+Monocyte 0 % 04:38</td><td> [facility] s [#/volume] in Eosinophils Health Care Blood by </td><td> [employer] Automated count 1.0
(0.0-5.0) % </td> Neutrophils [#] 55.8 % 40.0-7 <td> 05/10/2020 [facility] in Body fluid 6.0 % 04:38</td><td> [facility] by Manual count Neutrophils Health Care </td><td> [employer] 55.8
(40.0-76.0) % </td> Glucose 133 mg/dL 70-105 <td> 05/13/2020 [place] [Mass/volume] mg/dL 02:59</td><td> [facility] in Blood Glucose-Serum Health Care </td><td><[employer] raph styleCode="Bold "> 133 H </paragraph>
(70-105) mg/dL </td> Sodium 137 mEq/L 135-14 <td> 05/13/2020 [place] [Moles/volume] 5 02:59</td><td> County in Serum or mEq/L Sodium-Serum Health Care Plasma </td><td> [employer] 137
(135-145) mEq/L </td> Carbon dioxide, 25 mEq/L 22-30 <td> 05/13/2020 [facility] total mEq/L 02:59</td><td> County [Moles/volume] CO2 </td><td> Health Car e in Serum or Corporation Plasma 25
(22-30) mEq/L </td> Potassium 4.2 mEq/L 3.5-5. <td> 05/13/2020 [place] [Moles/volume] 1 02:59</td><td> [place] in Serum or mEq/L Potassium-Serum Health Care Plasma </td><td> [employer] 4.2
(3.5-5.1) mEq/L </td> Chloride 104 mEq/L 98-107 <td> 05/13/2020 [place] [Moles/volume] mEq/L 02:59</td><td> [place] in Serum or Chloride Health Care Plasma </td><td> [employer] 104
(98-107) mEq/L </td> Urea nitrogen 6 mg/dL 6-22 <td> 05/13/2020 [facility] r [Mass/volume] mg/dL 02:59</td><td> [place] in Blood BUN </td><td> [facility] 6
(6-22) mg/dL </td> Aspartate 22 U/L 4-35 <td> 05/13/2020 [place] aminotransferas U/L 02:59</td><td> County e [Enzymatic AST (SGOT) Health Care activity/volume </td><td> [employer] ] in Serum or Plasma 22
(4-35) U/L </td> Creatinine 0.59 mg/dL 0.57-1 <td> 05/13/2020 [place] [Moles/volume] .11 02:59</td><td> County in Serum or mg/dL Creatinine. Health Care Plasma </td><td> [employer] 0.59
(0.57-1.11) mg/dL </td> Alanine 36 U/L 6-55 <td> 05/13/2020 [place] aminotransferas U/L 02:59</td><td> [facility] e [Enzymatic ALT (SGPT) Health Care activity/volume </td><td> [facility] ] in Serum or Plasma 36
(6-55) U/L </td> Bilirubin.total 0.8 mg/dL 0.2-1. <td> 05/13/2020 [facility] [Mass/volume] 3 02:59</td><td> [facility] in Blood mg/dL Bilirubin - [facility] Total [employer] </td><td> 0.8
(0.2-1.3) mg/dL </td> Proteins - 6.8 g/dL 6.4-8. <td> 05/13/2020 [place] Total 3 g/dL 02:59</td><td> [facility] Proteins - [facility] [employer] </td><td> 6.8
(6.4-8.3) g/dL </td> Albumin 3.5 g/dL 3.4-4. <td> 05/13/2020 [place] [Mass/volume] 8 g/dL 02:59</td><td> [facility] in Serum or Albumin [facility] Plasma </td><td> [employer] 3.5
(3.4-4.8) g/dL </td> Globulin 3.3 gm/dL 2.9-4. <td> 05/13/2020 [place] [Mass/volume] 0 02:59</td><td> [facility] in Serum gm/dL Globulin [facility] Care </td><td> [employer] 3.3
(2.9-4.0) gm/dL </td> Anion gap in 8 mEq/L 7-13 <td> 05/13/2020 [place] Serum or Plasma mEq/L 02:59</td><td> [facility] Anion Gap [facility] </td><td> [employer] 8
(7-13) mEq/L </td> Calcium 8.9 mg/dL 8.6-10 <td> 05/13/2020 [place] [Mass/volume] .2 02:59</td><td> [facility] in Blood mg/dL Calcium [facility] Care </td><td> [facility] 8.9
(8.6-10.2) mg/dL </td> Icteric index Not <td> 05/13/2020 [facility] r of Serum or Icteric 02:59</td><td> [facility] Plasma Icteric Index [facility] </td><td> [employer] Not Icteric
</td> Lipemic index No Lipemia <td> 05/13/2020 [facility] er of Serum or 02:59</td><td> [facility] Plasma Lipemia Index [facility] </td><td> [facility] No Lipemia
</td> Hemolysis index No <td> 05/13/2020 [facility] of Serum or Hemolysis 02:59</td><td> [facility] Plasma Hemolysis Index [facility] </td><td> [employer] No Hemolysis
</td> Phosphate 4.4 mg/dL 2.3-4. <td> 05/13/2020 [place] [Mass/volume] 7 02:59</td><td> [facility] in Serum or mg/dL Inorganic [facility] Care Plasma Phosphorus [facility] </td><td> 4.4
(2.3-4.7) mg/dL </td> Prothrombin 10.4 secs 9.8-12 <td> 05/13/2020 [place] time (PT) .0 02:59</td><td> [facility] secs Prothrombin Health Care Time. [facility] </td><td> 10.4
(9.8-12.0) secs </td> aPTT panel - 29.4 secs 25.0-3 <td> 05/13/2020 [place] Platelet poor 2.0 02:59</td><td> [facility] plasma secs Partial Health Care Thromboplastin [facility] Time </td><td> 29.4
(25.0-32.0) secs </td> Appearance of Clear <td> 05/10/2020 [place] r Urine 13:00</td><td> [facility] Appearance Health Care </td><td> Corporation Clear
(CLEAR) </td> Source PLASMA <td> 05/13/2020 [place] 02:59</td><td> [facility] Source Health Care </td><td> Corporation PLASMA
</td> Specific 1.024 {} 1.000- <td> 05/10/2020 [place] gravity of 1.035 13:00</td><td> [facility] Urine by Test Specific Health Care strip [employer] </td><td> 1.024
(1.000-1.035) </td> Protein 1+ (30 <td> 05/10/2020 [place] [Presence] in MG/DL) 13:00</td><td> [facility] Urine by Protein Health Care Automated test [employer] strip </td><td><janelle raph styleCode="Bold "> 1+ (30 MG/DL) * AB </paragraph>
(NEGATIVE) </td> Glucose Negative <td> 05/10/2020 [place] [Presence] in 13:00</td><td> [facility] Urine by Test Glucose_ Health Care strip </td><td> Corporation Negative
(NEGATIVE) </td> Leukocyte Negative <td> 05/10/2020 [place] esterase 13:00</td><td> [place] [Presence] in Leukocytes [facility] Urine by Test Esterase Corporation strip </td><td> Negative
(NEGATIVE) </td> Urobilinogen 0.2 mg/dL 0.0-2. <td> 05/10/2020 [place] [Presence] in 0 13:00</td><td> [facility] Urine by mg/dL Urobilinogen Health Care Automated test </td><td> Corporation strip 0.2
(0.0-2.0) mg/dL </td> Nitrite Negative <td> 05/10/2020 [place] [Presence] in 13:00</td><td> [facility] Urine by Test Nitrites Health Care strip </td><td> Corporation Negative
(NEGATIVE) </td> Erythrocytes 15 /HPF 0-2 <td> 05/10/2020 [place] [#/area] in /HPF 13:00</td><td> [facility] Urine sediment RBC Health Care by Automated </td><td><janelle [employer] count raph styleCode="Bold "> 15 * AB </paragraph>
(0-2) /HPF </td> Leukocytes 2 /HPF 0-5 <td> 05/10/2020 [place] [Presence] in /HPF 13:00</td><td> [facility] Urine by WBC </td><td> Health Care Automated Corporation 2
(0-5) /HPF </td> Bacteria NONE SEEN <td> 05/10/2020 [place] [#/area] in 13:00</td><td> [facility] Urine sediment Bacteria Health Care by Microscopy </td><td> [employer] high power field NONE SEEN
(NONE) /HPF </td> Mucous RARE <td> 05/10/2020 [place] <= FEW 13:00</td><td> [facility] Mucous Health Care </td><td> Corporation RARE
/LPF
<= FEW

/LPF </td> Bacteria NONE SEEN <td> 05/10/2020 [place] [#/area] in <= FEW 13:00</td><td> [facility] Urine sediment Epithelial Health Care by Microscopy [employer] power </td><td> field NONE SEEN
<= FEW

/LPF </td> Hyaline casts 1.00 /LPF NONE <td> 05/10/2020 [facility] r [#/area] in /LPF 13:00</td><td> [facility] Urine sediment Hyaline Cast Health Care by Microscopy </td><td><janelle Corporatio n high power raph field styleCode="Bold "> 1.00 * AB </paragraph>
(NONE) /LPF </td> Fibrinogen 397 mg/dL 180-40 <td> 05/10/2020 [place] [Mass/volume] 0 04:38</td><td> [facility] in Platelet mg/dL Fibrinogen Health Care poor plasma by [employer] [facility] </td><td> assay 397
(180-400) mg/dL </td> Magnesium 2.0 mg/dL 1.6-2. <td> 05/13/2020 [place] [Mass/volume] 6 02:59</td><td> [facility] in Serum or mg/dL Magnesium Level [facility] Care Plasma </td><td> [employer] 2.0
(1.6-2.6) mg/dL </td> Hemoglobin A1C 4.7 % 4.0-5. <td> 05/10/2020 [facility] 6 % 04:38</td><td> [facility] Hemoglobin A1C Health Care </td><td> [employer] 4.7
(4.0-5.6) %
Increased risk for diabetes mellitus is seen in patients with HgA1C values
between 5.7-6.4%. Values > or = 6.5% are considered diagnostic of diabetes
mellitus.
Hemolytic anemias, hemoglobinopath ies, or recent transfusion may impact
HbA1c results. Clinical correlation is recommended.
===
ESTIMATED AVERAGE GLUCOSE (eAG)
---
RELATIONSHIP BETWEEN A1C AND eAG
===
A1C(%) eAG(mg/dL)
6 1 26
7 1 54
8 1 83
9 2 12
10 240
11 269
12 298
Source: Adapted from [place] [employer]. Standards of medical
care in diabetes-2014. Diabetes Care.2014;37(Carmen pp 1):S14-S80, table 8.

(4.0-5.6) % </td> Cholesterol in 60 mg/dL >60 <td> 05/10/2020 [facility] er HDL mg/dL 04:38</td><td> [facility] [Mass/volume] HDL Cholesterol Health Car e in Serum or </td><td><para Corporation Plasma graph styleCode="Bold "> 60 * AB </paragraph>
(>60) mg/dL </td> Cholesterol in 95 mg/dL <150 <td> 05/10/2020 [facility] er LDL mg/dL 04:38</td><td> [place] [Mass/volume] LDL Cholesterol Health Car e in Serum or </td><td> [employer] Plasma 95
(<150) mg/dL </td> Cholesterol 166 mg/dL 125-24 <td> 05/10/2020 [place] [Moles/volume] 0 04:38</td><td> [place] in Serum or mg/dL Cholesterol Health Care Plasma </td><td> [employer] 166
(125-240) mg/dL </td> Triglyceride 54 mg/dL 30-200 <td> 05/10/2020 [place] [Mass/volume] mg/dL 04:38</td><td> [place] in Serum or Triglyceride Health Care Plasma </td><td> [employer] 54
(30-200) mg/dL </td> ID Date Data Source [id number] 05/12/2020 10:59:00 AM EDT [facility] [id number] Corporation Name Value Range Interpretation Description Data Sup porting Code Source(s) Document(s ) Echo 2D [id number] [facility] <td> 05/12/2020 [facility] M-Mode [id number] 10:59</td><td> [facility] [id number] Echo 2D M-Mode [facility] Care (TTE) Non-Invasive Complete (TTE) [facility] Cardiology </td><td> Laboratory [id number] Advanced
Physician [facility] Services,
[id number] [place]
[address] Phone [phone] Non-Invasive Adult
Echocardiogram Cardiology Report Name:
[facility]ACY GR[facility] Laboratory
Study Advanced Date:
05/12/2020 Physician 10:59 AM Services,
BP: [address] : 1960
[place], [place]
Gender: Female [id number] Age: 59 yrs
Phone [phone]
Height: 69 in [phone] Fax Weight: 135 lb
BSA: 1.7 m2 Adult Patient Echocardiogram Location: NEUR Report Reason For
Study: SYNCOPE Name: MALA GRUBBS Ordering Physician: Study Date: KIEL COLLADO 05/12/2020 Performed By: 10:59 AM Susu Blank
Interpretation Summary The BP: left ventricle 131/79 mmHg is normal in
size. There : is normal left 1960 ventricular wall thickness. Gender: Left Female ventricular
systolic Age: 59 yrs function is normal. Ejection Height: 69 in Fraction is
55-60%. The Account left Number: ventricular [id number] wall motion is normal. Weight: 135 lb Trivial aortic
valve BSA: 1.7 m2 regurgitation. The inferior
vena cava is Patient dilated in size Location: NEUR with an
abnormal Reason For respiratory Study: SYNCOPE collapse, & COLLAPSE suggestive of severely

elevated right Ordering atrial pressure Physician: (15 mmHg). KIEL COLLADO ICD-10 Syncope and
collapse - R55. Performed By: Procedure Susu Blank A complete two-dimensional

transthoracic Interpretation echocardiogram Summary was performed
(2D, M-mode, The left spectral and ventricle is color flow normal in size. Doppler). (05141). Study
There quality is is normal left fair. Left ventricular Ventricle The wall thickness. left ventricle is normal in
Left size. There is ventricular normal left systolic ventricular function is wall normal. thickness. Left
ventricular Ejection systolic Fraction is function is 55-60%. normal.
Ejection The left Fraction is ventricular 55-60%. The wall motion is left normal. ventricular
wall motion is Trivial aortic normal. valve Right Ventricle regurgitation. The right
ventricle is The normal in size. inferior vena There is normal cava is dilated right in size with an ventricular abnormal wall thickness. respiratory The right
ventricular collapse, systolic suggestive of function is severely normal. elevated right Left Atrium atrial pressure Normal left (15 mmHg). atrial size. Right Atrium

Normal right ICD-10 atrial size.
Aortic Valve Syncope and The aortic collapse - R55. valve is trileaflet.

Normal Procedure thickness
aortic valve A complete leaflets. two-dimensional There is no transthoracic aortic echocardiogram stenosis. was performed Trivial aortic (2D, valve
regurgitation. M-mode, Mitral spectral and Valve color flow Structurally Doppler). normal mitral (02045). Study valve. Trivial quality is mitral valve fair. regurgitation.

Tricuspid Left Ventricle Valve
Structurally The left normal ventricle is tricuspid normal in size. valve. Trivial There is normal tricuspid valve left regurgitation. ventricular Pulmonic wall Valve The
pulmonic valve thickness. Left is poorly ventricular visualized. systolic There is no function is pulmonic valve normal. stenosis. Ejection Aorta The Fraction aortic root is
normal in size. is 55-60%. The Pulmonary left Artery There ventricular was wall motion is insufficient normal. tricuspid regurgitation

detected to Right calculate Ventricle pulmonary
artery systolic The right pressure. ventricle is Venous The normal in size. inferior vena There is normal cava is dilated right in size with an ventricular abnormal
respiratory wall collapse, thickness. The suggestive of right severely ventricular elevated right systolic atrial pressure function is (15 mmHg). normal. Pericardium

There is no Left Atrium pericardial
effusion. Normal left MMode/2D atrial size. Measurements & Calculations

IVSd: 0.81 cm Right Atrium LVIDd:
4.8 cm Normal right LV mass(C)d: atrial size. 131.2 grams LVIDs: 3.4 cm

LV Aortic Valve mass(C)dI: 75.1
grams/m2 The aortic LVPWd: 0.84 cm valve is trileaflet. Normal thickness aortic valve __ Ao root leaflets. diam: 3.3 cm
Asc Aorta diam: There is no 3.3 cm LVOT aortic diam: 2.0 cm stenosis. LA dimension: Trivial aortic 2.9 cm valve regurgitation.

Mitral Valve _ Left atrial
volume Left Structurally atrial volume normal mitral index Left valve. Trivial atrial volume mitral valve index (2c): regurgitation. 14.7 ml Left atrial volume

(2c): 8.4 Tricuspid Valve ml/m2 (4c): 18.9
ml/m2 (4c): Structurally 33.0 ml normal Doppler tricuspid Measurements & valve. Trivial Calculations tricuspid valve MV E max nik: regurgitation. MV dec time: 0.16 sec

Lat E' Pulmonic nik: 89.1 Valve cm/sec
The pulmonic valve is poorly 13.1 cm/sec visualized. MV A max nik: There is no 63.8 cm/sec pulmonic valve
stenosis.

_ Med E' nik: Aorta 7.3 cm/sec
The E/E' Lateral: aortic root is 6.8 normal in size. AV v max: 126.0 cm/sec E/E'

Medial: 12.2 Pulmonary AV max Artery P.3 mmHg
There was insufficient tricuspid regurgitation detected to _ LVOT max calculate P.7 mmHg
Stroke volume: pulmonary 57.4 ml artery systolic PA max P.0 pressure. mmHg LVOT v

max: 82.0 Venous cm/sec Stroke
volume index: The inferior LVOT VTI: 18.3 vena cava is cm 32.8 ml/m2 dilated in size with an abnormal respiratory
collapse, _ RV S suggestive of nik: 13.1 severely cm/sec E/E' elevated right Average: 9.5 atrial pressure (15 mmHg).

Pericardium
There is no _ pericardial Reading effusion. Physician: Darryl

MD Gustavo MMode/2D 05/12/2020 Measurements & 01:11 PM Calculations
IVSd: 0.81 cm LVIDd: 4.8 cm LV mass(C)d: 131.2 grams
LVIDs: 3.4 cm LV mass(C)dI: 75.1 grams/m2
LVPWd: 0.84 cm
_
Ao root diam: 3.3 cm Asc Aorta diam: 3.3 cm LVOT diam: 2.0 cm
LA dimension: 2.9 cm

_
Left atrial volume Left atrial volume index Left atrial volume index
(2c): 14.7 ml
Left atrial volume (2c): 8.4 ml/m2 (4c): 18.9 ml/m2
(4c): 33.0 ml

Doppler Measurements & Calculations
MV E max nik: MV dec time: 0.16 sec Lat E' nik:
89.1 cm/sec 13.1 cm/sec
MV A max nik:
63.8 cm/sec
__
Med E' nik: 7.3 cm/sec E/E' Lateral: 6.8 AV v max: 126.0 cm/sec
E/E' Medial: 12.2 AV max P.3 mmHg

_
LVOT max P.7 mmHg Stroke volume: 57.4 ml PA max P.0 mmHg
LVOT v max: 82.0 cm/sec Stroke volume index:
LVOT VTI: 18.3 cm
32.8 ml/m2
_

RV S nik: 13.1 cm/sec E/E' Average: 9.5

_

Reading Physician:
Darryl Chen MD 05/12/2020 01:11 PM

</td> ID Date Data Source [id number] 05/12/2020 12:00:00 AM EDT [facility] [id number] Corporation Name Value Range Interpretation Description Data Sup porting Code Source(s) Document(s ) Neurophysio Neurophysiol <td> 05/12/2020 [facility] radha sharma </td><td> [facility] Laboratory NAME: Neurophysiology Health Care ST[facility] Laboratory [employer] MR#: </td><td>
<br [id number] />

ADMIT DATE: 05/10/2020 Neurophysiology SERVICE DATE:

05/10/2020 NAME: SAURABH GRUBBS DATE:
MR#: [id number] [id number] NUMBER:
ADMIT [id number] DATE: DATE OF 05/10/2020 SERVICE:
May 10, 2020 SERVICE DATE: DATE OF 05/10/2020 :
September 09, DISCHARGE DATE: 1959
EEG LOG BILLING NUMBER: NUMBER: [id number]

AGE: 59 DATE OF SERVICE: LOCATION: May 10, 2020 Neuro 9.

REFERRING DATE OF : PHYSICIAN: 1960 Mp Quinonez

Joss EEG LOG NUMBER: HISTORY AND [id number] CONDITIONS

OF AGE: 59 RECORDING:

This is a LOCATION: Neuro 24-hour 9. bedside

18-channel REFERRING digital PHYSICIAN: Mp Quinonez M.D. recording on a

59-year-old HISTORY AND woman with a CONDITIONS OF history of RECORDING: This intraparench is a 24-hour ymal bedside hemorrhage 18-channel and altered
mental digital video EEG status. recording on a INDICATIONS 59-year-old woman FOR with a history of MONITORING:
To rule out subclinical intraparenchymal seizure hemorrhage and activity. altered mental START status. DATE: May

2019 at INDICATIONS FOR 8: 47:00 MONITORING: To a.m. rule out END DATE: subclinical May 11, 2020 seizure activity. at 11:19:00 a.m.

BACKGROUND START DATE: May ACTIVITY: 2019 at 8: The patient 47:00 a.m. appears

behaviorally END DATE: May asleep with 2019 at eyes 11:19:00 a.m. closed and

not BACKGROUND intubated. ACTIVITY: The The patient appears background behaviorally shows a asleep with eyes predominance
of closed and not generalized intubated. The 6-7 Hz theta background shows activity a predominance of intermixed
with low generalized voltage fast 6-7 Hz theta activity frequencies. intermixed with The low voltage fast background
slowing frequencies. appears more The background prominent on slowing appears the right more prominent on side, the right especially
the temporal side, especially region. On the temporal day #2 of region. On day monitoring, #2 of monitoring, the the patient
patient becomes more becomes more alert and alert and frequent eye frequent eye blink blink artifacts artifacts are seen in are seen in
the the tracing. tracing. Also, the Also, the background shows background less incidence of shows less theta incidence of
theta frequencies. frequencies. Towards the end Towards the of the recording end of the fairly well recording sustained 7-8 fairly well
sustained Hz rhythm is seen 7-8 Hz in the posterior rhythm is head regions. seen in the The patient is posterior noted to head
be regions. awake and alert The patient and eating. is noted to

be awake INTERICTAL and alert EPILEPTIFORM and eating. ABNORMALITIES: None. INTERICTAL

EPILEPTIFORM ICTAL ABNORMALITIE EPILEPTIFORM S: None. ABNORMALITIES: ICTAL None. EPILEPTIFORM

ABNORMALITIE CLINICAL EVENTS: S: None. None. CLINICAL

EVENTS: IMPRESSION: This None. 24-hour bedside IMPRESSION: video EEG This 24-hour recording is bedside moderately video EEG
recording is abnormal because moderately of diffuse abnormal bihemispherical because of slowing with diffuse greater bihemispheri
rico slowing involvement of with greater the right side, especially the involvement temporal region. of the right No side,
especially sustained slow the temporal wave focus or region. No epileptiform sustained abnormalities are slow wave seen. focus or

<b epileptiform r/>
abnormalitie DICT: PEG s are seen. AMARA
DD: DICT: PEG 05/12/20 03 18 PM AMARA 03 18 PM 22:45:37/HN DT:
0 22:45:37/HN

==== END OF ========= DOCUMENT / CHANGE END OF LOG FOLLOWS DOCUMENT / CHANGE LOG FOLLOWS

===== Elec. Signed Elec. Signed By By AMARA
PEG #[id number] on 05/13/2020 AMARA, 06:43 ET PEG #[id number]
on 05/13/2020 06:43 ET

</td> ID Date Data Source [id number] 05/10/2020 02:36:00 AM EDT [facility] [id number] Corporation Name Value Range Interpretation Description Data Sup porting Code Source(s) Document(s ) Angio (PACSIMAGE <td> 05/10/2020 [place] Head/Neck 02:36</td><td> [facility] CT ) Angio Head/Neck Health Care Final Result CT Corporation Name: </td><td><STACY Arnett ph M MRN: styleCode="Brielle [id number] Sex: s">(PACSIMAGE F : 1960 )</paragraph><br/ Location: F >
Final Admitting Result Physician:

EMERGENCY Name: JIGNA GRUBBS Requesting
MRN: Physician: [id number] Sex: F ZAYRA AVILA
Exam: CT : 1960 ANGIO Location: F HEAD/NECK
05/10/2020 Admitting 02:55 Physician: CLINICAL EMERGENCY SERVICE STATEMENT: 59
years old Requesting Female with a Physician: ZAYRA AVILA history of

altered Exam: CT ANGIO mental HEAD/NECK status. 05/10/2020 02:55 COMPARISON: CT of the

head CLINICAL performed STATEMENT: 59 05/09/2020 from years old Female outside with a clinical facilityy history TECHNIQUE:
of Noncontrast altered mental head CT status. followed by

CT COMPARISON: CT of angiography the head of the head performed and neck is 05/09/2020 from performed outside facilityy utilizing 1 mm axial

images after TECHNIQUE: the
uneventful Noncontrast head intravenous CT followed by CT administratio angiography of n of the head and approximately
60 mL of neck is performed Omnipaque utilizing 1 mm 350 contrast axial images material. after the Three-dimens uneventful ional maximum
intensity intravenous projection administration of reconstructio approximately 60 ns are mL of Omnipaque provided for
interpretatio 350 contrast n. material. Up-to-date CT

equipment Three-dimensional using maximum intensity Automatic projection Exposure reconstructions Control, dose
modulation, are provided for and iterative interpretation. reconstructio n dose

reduction Up-to-date CT software equipment using was employed. Automatic The total Exposure Control, study DLP is dose approximately
928.4 mGy-cm. modulation, and iterative FINDINGS: reconstruction Noncontrast dose reduction CT head: software Ventricular
was caliber is employed. within normal
The limits for total study DLP patient's is approximately age. There 928.4 mGy-cm. is a 1.3 x

0.8 cm focus FINDINGS: of

hyperdensity Noncontrast within the CT head: right basal
ganglia, more Ventricular conspicuous caliber is within compared to normal limits for prior outside patient's age. CT
examination. There is a 1.[address] 0.8 cm focus of evidence of hyperdensity delayed within the right intracranial
hemorrhage. basal ganglia, No midline more conspicuous shift or compared to prior hydrocephalus outside CT . Mild
mucosal examination. No thickening CT evidence of within the delayed right intracranial sphenoid hemorrhage. sinus. The
No mastoid air midline shift or cells are hydrocephalus. well-aerated. Mild mucosal The thickening within visualized
orbits are the right unremarkable. sphenoid sinus. There is no The mastoid air displaced cells are calvarial well-aerated. fracture.
CT The visualized angiography orbits are of the neck: unremarkable. Origins of There is no the great displaced vessels of
the neck are calvarial grossly fracture. patent.

Direct origin CT angiography of of the left the neck: vertebral
artery. The Origins of the left great vessels of vertebral the neck are artery is grossly patent. dominant..The
re is no Direct origin of evidence of the left hemodynamical vertebral artery. ly The left significant vertebral stenosis at
the common artery is carotid dominant..There artery is no evidence of bifurcations hemodynamically bilaterally significant utilizing
NASCET stenosis at the criteria. common carotid There is artery focal bifurcations enlargement bilaterally with linear
flap utilizing NASCET involving the criteria. left V2

vertebral There is focal segment at enlargement with the C4 linear flap transverse involving the foramen left (series 401
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
image yee 430) suggestive dissection of a flap. This pseudoaneurysm region and measures age-indeterminate approximately
3 mm x 4 mm dissection (transverse flap. This region by measures anteroposteri approximately 3 or). mm x 4 Additionally,
mm there is (transverse by luminal anteroposterior). irregularity Additionally, involving the there is luminal left distal
V1 segment irregularity (series 404 involving the image 117). left distal V1 Correlation segment (series with prior 404 history is
image suggested. 117). Correlation Findings with prior may reflect history is age-indetermi suggested. yee blunt Findings cerebrovascul
may ar injury. reflect Underlying age-indeterminate fibromuscular blunt dysplasia or cerebrovascular arteritis injury. cannot be Underlying excluded.
There is a fibromuscular laterally dysplasia or oriented arteritis cannot focal be excluded. outpouching There arising off
is a the distal laterally left cervical oriented focal internal outpouching carotid arising off the artery at the distal C1 level
left suggestive cervical internal of a carotid artery at pseudoaneurys the C1 level m with suggestive possible
of age-indetermi a pseudoaneurysm yee with possible dissection age-indeterminate flap, dissection measuring
approximately flap, measuring 5 x 3 mm approximately 5 x (anteroposter 3 mm ior by (anteroposterior transverse; by transverse; series 401
image 314). series 401 image 7 mm right 314). thyroid

7 nodule. If mm right thyroid this is a new nodule. If this finding for is a new finding patient, for patient, outpatient
thyroid outpatient ultrasound thyroid correlation ultrasound is suggested, correlation is as clinically suggested, as warranted. clinically CT
angiography warranted. [place] of

Root: CT angiography There is no [place] of Root: evidence of
proximal There is no branch evidence of occlusion or proximal branch high-grade occlusion or proximal high-grade stenosis to
the proximal stenosis visualized to the visualized vessels of vessels of the the [place] of [place] of Root.
Incidental Root. 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
within the within the right right basal basal ganglia/front ganglia/frontal al lobe. The lobe. The basilar basilar artery artery is
is patent. patent. Posterior Posterior communicating communicating arteries are arteries are present present bilaterally. bilaterally.
No evidence No evidence of of aneurysm aneurysm or large or large arteriovenous arteriovenous malformation. malformation.
Please note Please note that that aneurysms and aneurysms and arteriovenous arteriovenous malformations malformations less less than 3
than 3 mm may or may mm may or may not not be be detected detected utilizing CT utilizing CT angiographic angiographic
technique. technique.

IMPRESSION: IMPRESSION:

Noncontrast Noncontrast CT CT head: 1. head: Focus of
1. hyperdensity Focus of within the hyperdensity right basal within the right ganglia, more basal ganglia, conspicuous more compared to
prior outside conspicuous CT compared to prior examination outside CT likely examination related to likely related differences
in technique, to differences in possibly technique, reflecting possibly intraparenchy reflecting mal intraparenchymal hemorrhage.
Differential hemorrhage. consideration Differential s include a considerations cavernous include a malformation cavernous given malformation regional
prominent given regional developmental prominent venous developmental anomaly seen venous anomaly on seen on concurrently
performed CT concurrently angiogram, as performed CT detailed angiogram, as below. detailed below. Attention Attention on follow-up
on imaging is follow-up imaging suggested to is suggested to assess assess interval interval stability. stability.
Additional Additional correlation correlation with with pending pending MRI brain MRI brain is is suggested. suggested.
2. No CT 2. No CT evidence evidence of of large delayed large delayed intracranial intracranial hemorrhage. hemorrhage.

CT CT angiography angiography of the neck: of the neck:
1. Regions 1. Regions of of irregularity irregularity involving the involving the left vertebral left distal vertebral
V1 and distal V1 V2 segments, as and V2 described in segments, as detail above. described in Possible detail above. age-indeterminate Possible
age-indetermi dissection and yee pseudoaneurysm dissection involving the and left V2 segment pseudoaneurys within m involving
the C4 the left V2 transverse segment foramen. within the Underlying C4 transverse fibromuscular foramen. dysplasia Underlying
or fibromuscular arteritis cannot dysplasia be excluded. or arteritis Further cannot be correlation for excluded. prior Further
trauma correlation is suggested. for prior
trauma is 2. Suggestion of suggested. pseudoaneurysm 2. Suggestion involving the of distal left pseudoaneurys cervical m involving
the distal internal carotid left cervical artery, as internal described in carotid detail above. artery, as
described in 3. No evidence of detail above. hemodynamically 3. No significant evidence of stenosis at the hemodynamical
ly common carotid significant artery stenosis at bifurcations the common bilaterally per carotid NASCET criteria.. artery
bifurcations 4. Hypodense bilaterally right thyroid per NASCET nodule. If this criteria.. is a new finding 4. Hypodense for right thyroid
nodule. If patient, this is a new outpatient finding for thyroid patient, ultrasound outpatient correlation is thyroid suggested, ultrasound
as correlation clinically is suggested, warranted. as

clinically CT angiography warranted. [place] of Root: CT
angiography 1. No evidence [place] of of proximal Root: 1. branch occlusion No evidence or high-grade of proximal proximal branch
occlusion or stenosis to the high-grade visualized proximal vessels of the stenosis to [place] of [place]. the
visualized 2. vessels of Developmental the [place] of venous anomaly in Root. 2. the region of the Developmental right basal venous
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 the right

basal These ganglia and findings were frontal lobe. discussed with These and readback findings were verification discussed
with and obtained from Dr. breezy Sylvester at 3:12 AM verification and 7:50 AM on obtained 05/10/2020 by from
Nga at 3:12 radiology AM and 7:[address] SÁNCHEZ on Hussein. 05/10/2020 by

radiology Additional result resident findings were Hussein. discussed with Additional and read back result
findings were verification discussed obtained from Dr. vides and stephani Broussard by back radiology verification resident obtained from
Dr. Broussard by Silas Stark on radiology 05/10/2020 at 8:[address] AM. Rosen

<ana Stark on r/>

05/10/2020 at Resident 8:00 AM. Radiologist: Silas Stark MD Resident Resident Radiologist: Ingat Silas
Lincoln GREER Attending Resident Radiologist: Trini Nixon MD Attending
Radiologist: Adrianne Nixon MD Radiologist: Trini Nixon MD Radiologist:
Trini Nixon MD Transcribed Date: Transcribed 05/10/2020 10:14 Date:
05/10/2020 Finalized Date: 10:14 05/10/2020 10:28 Finalized Date:

</td> 05/10/2020 10:28 TUNDE (PACSIMAGE <td> 05/12/2020 [place] Procedure 16:00</td><td> [facility] TUNDE Procedure Health Care Final Result </td><td><paragra Corporati on Name: STACY GRUBBS styleCode="Italic M MRN: s">(PACSIMAGE [id number] Sex: F : )</paragraph><br/ 1960 >
Final Location: F Result Admitting

Physician: Name: CARLOS GRUBBS Requesting
MRN: Physician: [id number] Sex: F KRUNAL
CHEVYHORACE : 1960 Exam: IR Location: F TUNDE PROCEDURE
05/12/2020 Admitting 20:00 Physician: Sarah PETERESN date:
05-12-2020 Requesting Pre-Op Physician: KRUNAL Diagnosis: HERIBERTO Right basal

ganglia Exam: IR TUNDE hemorrhage; PROCEDURE developmental 05/12/2020 20:00 venous anomaly

Attending: Procedure date: Dr. Hector 05-12-2020 Heriberto

Emblem Cutter Pre-Op 1: Marcella Diagnosis: Right Dakay DO basal ganglia Emblem Cutter 2: hemorrhage; quentin Hardin MD
Emblem Cutter 3: venous anomaly Brant Kaplan MD

Medications/A Attending: Dr. orlando: Krunal Louis General anesthesia

(employed for Emblem Cutter 1: patient Marcella Lawson DO cooperation
reasons) Emblem Cutter 2: Materials Kevin Gabriel MD used:
Micropuncture Emblem Cutter 3: kit, Nitrex Brant Kaplan MD wire, Landeros wire, 5

Mosotho Medications/Anest hockey-stick hesia: General Berenstein anesthesia catheter, (employed for Terumo patient Glidewire,
Terumo cooperation torque, 5 reasons) Mosotho Long

sheath, 5 Materials used: Mosotho short Micropuncture sheath, 5 kit, Nitrex wire, Mosotho Mynx Landeros wire, device
5 Contrast Mosotho used: 115 mL hockey-stick Fluoroscopy Berenstein time: 22 catheter, Terumo minutes Glidewire, Procedure:
Diagnostic Terumo torque, 5 Cerebral Mosotho Long Angiogram sheath, 5 Mosotho Vessels short sheath, 5 Catheterized:
Right Mosotho Mynx Common device Carotid

Artery Contrast used: Right 115 mL Internal
Carotid Fluoroscopy time: Artery 22 minutes Right

External Procedure: Carotid Diagnostic Artery Cerebral Right Angiogram Vertebral

Artery Left Vessels Common Catheterized: Carotid
Artery Left Right Common Internal Carotid Artery Carotid
Artery Left Right Internal External Carotid Artery Carotid
Artery Left Right External Vertebral Carotid Artery Artery
Angiography Right Vertebral and Artery Interpretatio
Left n of the Common Carotid following Artery images:
Left Right common Internal Carotid Carotid Artery artery,
Left Cervical, AP, External Carotid Lateral Artery Left common
Left Carotid Vertebral Artery artery, Cervical, AP,

Lateral Angiography and Right Interpretation of internal the following Carotid images: artery,
Right Cranial, AP, common Carotid Lateral artery, Cervical, Left internal AP, Lateral Carotid
artery, Left common Cranial, AP, Carotid artery, Lateral Cervical, AP, Right Lateral External
Right Carotid internal Carotid artery, artery, Cranial, Cranial, AP, AP, Lateral Lateral
Left Common Left internal Carotid Carotid artery, artery, Cranial, AP, Cranial, AP, Lateral Lateral
Right Left External Carotid Vertebral artery, Cranial, Artery, AP, Lateral Cranial, AP,
Lateral Left Common Right Carotid artery, Vertebral Cranial, AP, Artery, Lateral Cranial, AP,
Left Lateral Vertebral Artery, Indication: Cranial, AP, The patient Lateral is a 59 year
Right old woman Vertebral Artery, with a Cranial, AP, history of Lateral substance

use, major Indication: depressive
disorder and The patient is a no history of 59 year old woman anticoagulati with a history of on or substance antiplatelet
use, who presented major depressive with a right disorder and no basal ganglia history of hemorrhage anticoagulation initially to
an outside or antiplatelet hospital. CT who presented angiogram with a right showed a basal ganglia prominent hemorrhage developmental
venous initially to an anomaly which outside hospital. emptied into CT angiogram the basal showed a vein of prominent Steven,
yet no developmental obvious nidus venous anomaly or fistula. which emptied Additionally into the basal there was a vein possible
of pseudoaneurys Steven, yet no m of the obvious nidus or internal fistula. carotid as Additionally well as a there left
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
findings. as a left Given the vertebral artery prominence of dissection noted, this feature both incidental on the CT
angiogram, findings. Given a diagnostic the prominence of cerebral this feature on angiogram was the CT angiogram, undertaken
primarily to a diagnostic rule out a cerebral transitional angiogram was arteriovenous undertaken malformation primarily to rule or
[facility]-associate out a d AVM. transitional Description arteriovenous of the malformation or Procedure and [facility]-associated Interpretatio
n of the AVM. Angiographic

Images: Description of Informed the Procedure and written Interpretation of consent was the Angiographic obtained from
the patient Images: after
discussion of Informed written indications, consent was risks, obtained from the benefits, and patient after alternatives.
Including discussion of the risks of indications, , risks, benefits, disability, and alternatives. stroke,
intracranial Including the and risks of , extracranial disability, hemorrhage, stroke, infection, intracranial nephropathy,
radiation and extracranial injury and hemorrhage, treatment infection, failure. The nephropathy, patient was radiation brought to
the injury and angiographic treatment suite and failure. The placed supine patient was on the brought to the angiography
table. She angiographic was suite and placed intubated, supine on the due to angiography inability to table. cooperate
She was with intubated, due to breathholding inability to and supine cooperate with positioning. breathholding Bilateral
groins were and supine sterilely positioning. prepped and Bilateral groins draped. Bony were sterilely landmarks prepped were
and identified draped. Bony and the right landmarks were common identified and femoral the right common artery
pulsation was femoral artery located below pulsation was the inguinal located below the ligament. inguinal The right ligament. common
The femoral right common artery was femoral artery cannulated was cannulated using an using an 21-gauge 21-gauge
micro micro puncture puncture needle and needle and Seldinger Seldinger technique was technique was used to pass used to pass
the 5 Mosotho the 5 Mosotho sheath into sheath into the the common common femoral femoral artery. Patency artery. of Patency of
flow flow was was confirmed and confirmed and the sheath was the sheath connected to a was connected continuous to a
continuous pressurized pressurized bubble free bubble free heparinized heparinized saline flush. A 5 saline flush. Mosotho A 5 Mosotho
hockey-stick hockey-stick [employer] catheter was catheter was prepped, prepped, advanced advanced over over a a Terumo
Terumo glidewire glidewire (.035in) to (.035in) to the the descending aorta, descending double flushed, aorta, double
flushed, and used to and used to select the select the following following vessels: vessels:

Right Common Right Common Carotid Carotid Artery, Artery, Cervical, AP, Cervical, AP, Lateral (image Lateral 2,3) (image 2,3)

PA PA and and lateral lateral projections projections demonstrate demonstrate anterograde flow anterograde into flow into
the the common, common, internal internal and and external external carotid arteries. carotid There is arteries.
There is anterograde flow anterograde into the branches flow into the of the external branches of carotid artery the external
carotid including the artery superior thyroid, including the lingual, facial, superior and occipital thyroid,
lingual, arteries prior to facial, and bifurcating into occipital the superior arteries temporal and prior to
bifurcating internal into the maxillary superior arteries. The temporal and ascending internal cervical internal maxillary
arteries. The carotid artery ascending was notable for a cervical prominent loop in internal the distal carotid
artery was cervical segment. notable for a There is no prominent evidence of loop in the atheromatous distal disease cervical
or segment. hemodynamically There is no significant evidence of stenosis. atheromatous

disease or Right Internal hemodynamical Carotid Artery, ly Cranial, AP, significant Lateral (image stenosis. 4-6) Right

Internal The petrous, Carotid lacerum, Artery, cavernous, Cranial, AP, clinoid, Lateral ophthalmic, and (image 4-6) communicating The
petrous, segments were lacerum, normal. The cavernous, ophthalmic artery clinoid, is notably ophthalmic, prominent and
with communicating several small segments prominent were normal. branches but no The evidence of ophthalmic fistula. artery is
The notably anterior prominent choroidal artery with several was normal. The small posterior prominent communicating branches but
no evidence artery was very of fistula. prominent and The anterior in origin choroidal (see vertebral artery was
normal. The injection). The posterior internal carotid communicating artery bifurcates artery was normally into very
prominent and the middle in cerebral artery origin (see and anterior vertebral cerebral artery. injection). There The internal
is carotid normal artery opacification of bifurcates the middle normally into cerebral artery the middle and anterograde cerebral
artery and flow into its anterior distal segments. cerebral There is normal artery. There opacification is normal
opacification of the anterior of the middle cerebral artery cerebral and anterograde artery and flow into its anterograde
flow into its distal segments. distal There was no segments. cross flow to the There is contralateral normal
opacification side across the of the anterior anterior communicating cerebral artery. The artery and developmental anterograde
flow into its venous anomaly distal seen on CT segments. angiogram is There was no again cross flow to redemonstrated, the
contralateral best seen on the side across high the anterior magnification communicating oblique view artery. The image 6, AP developmental
venous image; the venous anomaly seen drainage is best on CT elucidated on CT angiogram is angiogram again
but redemonstrate appears to be d, best into the basal seen on the vein of high Steven. There magnification is oblique view
no image 6, AP evidence of nidus image; the or fistula to venous suggest an drainage is arteriovenous best malformation elucidated on
CT angiogram or fistula. but appears

to be into Right External the basal Carotid Artery, vein of Cranial, AP, Steven. Lateral (image 8) There is no evidence of

nidus or Multiple AP and fistula to lateral views suggest an were obtained arteriovenous with a catheter malformation positioned or fistula.
in Right the external External carotid artery. Carotid The internal Artery, maxillary artery, Cranial, AP,
Lateral superficial (image 8) temporal artery, Multiple AP and occipital and lateral artery are views were visualized. obtained with
a catheter There is no positioned evidence of in the arteriovenous external malformations or carotid other artery. The
internal vascular maxillary anomalies. artery,

superficial Right Vertebral temporal Artery, Cranial, artery, and AP, Lateral occipital (image 12) artery are
The visualized. right vertebral There is no artery is evidence of nondominant, and arteriovenous primarily malformations terminates or other
in vascular the posterior anomalies. inferior Right cerebellar Vertebral artery. The V3 Artery, segment is Cranial, AP,
Lateral normal; the V4 (image 12) segment is The right hypoplastic with vertebral minimal artery is contribution nondominant,
and primarily to the basilar terminates artery. The in the posterior posterior inferior inferior cerebellar artery cerebellar
artery. The was normal in V3 segment is caliber. The normal; the basilar artery, V4 segment is bilateral hypoplastic anterior with minimal
contribution inferior to the cerebellar basilar arteries, artery. The superior posterior cerebellar inferior arteries were cerebellar
artery was normal. There are normal in hypoplastic P1 caliber. The segments basilar consistent with artery, dominant bilateral
anterior posterior inferior communicating cerebellar arteries arteries, bilaterally. The superior mean transit cerebellar
arteries were times and venous normal. phases were There are normal. hypoplastic

P1 segments Left Common consistent Carotid Artery, with dominant Cervical, AP, posterior Lateral (image communicating 13) arteries

PA bilaterally. and lateral The mean projections transit demonstrate times and anterograde flow venous phases into were normal.
the Left common, internal Common and external Carotid carotid arteries. Artery, There is Cervical, AP,
Lateral anterograde flow (image 13) into the proximal PA and internal and lateral external carotid projections
demonstrate arteries. anterograde

flow into Left Internal the common, Carotid Artery, internal and Cervical, AP, external Lateral (image carotid 14-15) arteries.

There is The cervical anterograde internal carotid flow into the is normal in proximal course and internal and caliber. external
There carotid is a prominent arteries. loop in the Left distal cervical Internal internal carotid Carotid
Artery, without Cervical, AP, evidence of Lateral pseudoaneurysm. (image 14-15) The intracranial The vasculature cervical
is internal better elucidated carotid is on the dedicated normal in cranial runs, course and below. caliber.

There is a Left Internal prominent Carotid Artery, loop in the Cranial, AP, distal Lateral (image cervical 16) internal

carotid The petrous, without lacerum, evidence of cavernous, pseudoaneurys clinoid, m. The ophthalmic, and intracranial communicating vasculature
is better segments were elucidated on normal. The the dedicated ophthalmic artery cranial runs, and anterior below. choroidal Left Internal
Carotid artery were Artery, normal. The Cranial, AP, posterior Lateral communicating (image 16) artery was The dominant petrous,
lacerum, consistent with a cavernous, small P1 segment clinoid, on the ophthalmic, ipsilateral side. and The communicating
segments internal carotid were normal. artery bifurcates The normally into the ophthalmic middle cerebral artery and
anterior artery and choroidal anterior cerebral artery were artery.There is normal. The normal posterior opacification communicating
artery was of the middle dominant cerebral artery consistent and anterograde with a small flow into its P1 segment on distal the
ipsilateral segments. There side. The is normal internal opacification of carotid the anterior artery cerebral bifurcates
normally into artery and the middle anterograde flow cerebral into its distal artery and segments. There anterior was cerebral
artery.There substantial cross is normal flow to the opacification contralateral of the side across the middle anterior cerebral
artery and communicating anterograde artery. The mean flow into its transit time and distal venous phases segments.
There is were normal. normal

opacification Left Common of the Carotid Artery, anterior Cranial, AP, cerebral Lateral (to artery and evaluate anterograde
flow into its external carotid distal artery, image 18 segments. and 19) There was
substantial Multiple AP and cross flow to lateral views the were obtained contralateral with a catheter side across positioned the anterior
in communicatin the external g artery. The carotid artery. mean transit The internal time and maxillary artery, venous phases
were superficial normal. temporal artery, Left Common and occipital Carotid artery are Artery, visualized. Cranial, AP,
Lateral (to There is no evaluate evidence of external arteriovenous carotid malformations or artery, image other 18 and 19)
Multiple AP vascular and lateral anomalies. The views were internal carotid obtained with artery is a catheter visualized positioned
and in the best elucidated external on dedicated runs carotid (above). artery. The

internal Left Vertebral maxillary Artery, Cervical, artery, AP, Lateral superficial (image 21) temporal
The artery, and left vertebral occipital artery is the artery are dominant visualized. vertebral and is There is no notable evidence of
for arteriovenous diffuse malformations dysplasia. There or other are mild vascular irregularities of anomalies. the V1 The internal
carotid segment. There artery is are two visualized dissecting and best pseudoaneurysms elucidated on of the lower dedicated
runs (above). V2 segment and a Left fenestration of Vertebral the upper V2 Artery, segment. There Cervical, AP,
Lateral is dysplastic (image 21) dilatation of the The left V3 segment. vertebral

artery is the Left Vertebral dominant Artery, Cranial, vertebral and AP, Lateral is notable (image 22) for diffuse
dysplasia. Left vertebral There are artery is mild dominant. There irregularitie is dysplastic s of the V1 dilatation segment.
of There are two the V3 segment. dissecting The V4 segment is pseudoaneurys fairly normal in ms of the caliber, lower V2
as is segment and a the basilar fenestration artery. The left of the upper posterior V2 segment. inferior There is cerebellar dysplastic
dilatation of artery was normal the V3 in caliber. The segment. bilateral Left anterior inferior Vertebral
Artery, cerebellar Cranial, AP, arteries and Lateral superior (image 22) cerebellar Left arteries are vertebral normal. artery is
The dominant. bilateral P1 There is segments of the dysplastic posterior dilatation cerebral arteries of the V3
segment. The were V4 segment is visualized but fairly normal are hypoplastic in caliber, consistent with as is the dominant basilar
artery. The posterior left communicating posterior arteries inferior bilaterally. The cerebellar mean transit artery was
normal in times and venous caliber. The phases were bilateral normal. anterior

inferior Femoral cerebellar Arteriotomy: arteries and (image 1,24,25) superior
cerebellar AP angiograms of arteries are the right common normal. The femoral artery bilateral P1 were obtained segments of
the posterior through the groin cerebral sheath and arteries confirmed were placement in the visualized right but are
common hypoplastic femoral artery. A consistent 5 Mosotho Mynx with dominant device resulted posterior in hemostasis communicating
arteries without hematoma. bilaterally. A sterile The mean pressure gauze transit dressing was times and placed venous phases
over were normal. the arteriotomy Femoral site. The Arteriotomy: cerebral (image angiogram and 1,24,25) AP arteriotomy angiograms of
the right were completed common without any femoral complications. artery were Patient was obtained returned through the
to groin sheath the hospital bed and confirmed in stable placement in baseline the right condition. Dr. david Louis femoral
was artery. A 5 present during Mosotho Mynx all inman parts of device the procedure and resulted in interpretation hemostasis
without of images. hematoma. A sterile

pressure Impression: gauze

dressing was 1. 59 year placed over old woman with a the right basal arteriotomy ganglia site. The hemorrhage. cerebral Angiography angiogram and
is arteriotomy requested, to were evaluate in completed greater detail a without any venous anomaly complications
. Patient was identified on returned to CTA. the hospital

2. bed in stable Diagnostic baseline cerebral condition. angiography reveals no Heriberto evidence of was present arteriovenous during all
inman parts of malformation or the procedure fistula; the and previously interpretatio visualized n of developmental images.
Impression: venous anomaly is 1. 59 redemonstrated, year old with ill-defined woman with a venous drainage right basal
ganglia into the basal hemorrhage. vein of Angiography Steven. is requested,

to evaluate 3. 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
of CTA. 2. the extracranial Diagnostic left vertebral cerebral artery, with angiography evidence of two reveals no
evidence of dissecting arteriovenous pseudoaneurysms of the lower V2 malformation segment and a or fistula; fenestration the
previously of the upper V2 visualized segment, as well developmental as dysplastic venous dilatation of anomaly is
redemonstrate the V3 segment. d, with There is no ill-defined obvious flow venous limitation, drainage however.. into the

basal vein of 4. Groin closure Steven. achieved with a 5 3. Mosotho Mynx Angiography device. also reveals

< evidence of br/>
multifocal Resident dysplasia Radiologist: of the Marcella Lawson extracranial Neurosurgery left Felloww vertebral
artery, with Attending evidence of Radiologist: two Krunal Louis dissecting NeuroSurgeon pseudoaneurys
ms of the Finalizing lower V2 Radiologist: terrell and a Krunal Louis fenestration NeuroSurgeon of the upper
V2 segment, Transcribed as well as Date: 05/12/2020 dysplastic 21:12 dilatation of
the V3 Finalized Date: segment. 05/13/2020 10:35 There is no obvious flow

</td> limitation, however.. 4. Groin closure achieved with a 5 [employer]otho Mynx device. Resident Radiologist: Marcella Lawson MD Neurosurgery Felloww Attending Radiologist: Krunal Louis MD NeuroSurgeon Finalizing Radiologist: Krunal Louis MD NeuroSurgeon Transcribed Date: 05/12/2020 21:12 Finalized Date: 05/13/2020 10:35 Chest (PACSIMAGE <td> 05/11/2020 [facility] 08:51</td><td> [facility] Final Result </td><td><paragra Corporati on Name: STACY GRUBBS styleCode="Italic M MRN: s">(PACSIMAGE [id number] Sex: F : )</paragraph><br/ 1960 >
Final Location: F Result Admitting

Physician: Name: MP GRUBBS AL-TRIPPI
MRN: Requesting [id number] Sex: F Physician:
JACQUELYN SALDIVAR : 1960 Exam: Location: F CHEST
PORTABLE Admitting 05/11/2020 Physician: MP 09:09 AL-MUFTI Portable
chest May 11ing 2019 Physician: JACQUELYN SALDIVAR HISTORY:

Preop Exam: CHEST The heart and PORTABLE mediastinum 05/11/2020 09:09 are distorted on the

portable AP Portable chest projection May 11, 2020 however

appear CLINICAL prominent in HISTORY: Preop size. The left

costophrenic The heart and angle is mediastinum are clear. There distorted on the is blunting portable AP of the right projection costophrenic
angle however appear suggesting prominent in a small size. The left right-sided costophrenic pleural angle effusion and
is right basilar clear. There is atelectasis. blunting of the The trachea right appears costophrenic midline. angle suggesting There is no
discernible a small pneumothorax right-sided noted. There pleural effusion is no and right basilar evidence for atelectasis. hilar
enlargement. The trachea Uncoiled appears midline. aorta. Foci There is no of discernible atelectasis pneumothorax also noted in
the right noted. There is upper lobe. no evidence for hilar IMPRESSION: enlargement. Elevation of Uncoiled aorta. the right
hemidiaphragm Foci of with atelectasis also right-sided noted in the pleural fluid right upper lobe. noted as well is some foci

of IMPRESSION: atelectasis. Elevation of the right Resident hemidiaphragm Radiologist: with right-sided Attending
Radiologist: pleural fluid Marcell Matias noted as well is MD some foci of Finalizing atelectasis. Radiologist: Marcell Matias

<b r/> Resident Transcribed Radiologist: Date:
05/11/2020 Attending 09:24 Radiologist: Finalized Marcell Matias MD Date:
05/11/2020 Finalizing 09:25 Radiologist: Marcell Matias MD
Transcribed Date: 05/11/2020 09:24
Finalized Date: 05/11/2020 09:25

</td> Head (PACSIMAGE <td> 05/10/2020 [place] Without 02:36</td><td> [facility] ) Head [facility] T Final Result [facility] [employer] Name: </td><td>STACY Godinez ph M MRN: styleCode="Brielle [id number] Sex: s">(PACSIMAGE F : 1960 )</paragraph><br/ Location: F >
Final Admitting Result Physician:

EMERGENCY Name: ROMIE, SERVICE STACY Martin Requesting
MRN: Physician: [id number] Sex: F ZAYRA AVILA
Exam: CT : 1960 HEAD C- Location: F 05/10/2020
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
Female with a Requesting clinical Physician: ZAYRA history of PLANSKY altered

mental Exam: CT HEAD C- status. 05/10/2020 02:55 COMPARISON: CT of the

head CLINICAL performed STATEMENT: 59 05/09/2020 from years old Female outside with a clinical facilityy history TECHNIQUE:
of Noncontrast altered mental head CT status. followed by

CT COMPARISON: CT of angiography the head of the head performed and neck is 05/09/2020 from performed outside facilityy utilizing 1 mm axial

images after TECHNIQUE: the
uneventful Noncontrast head intravenous CT followed by CT administratio angiography of n of the head and approximately
60 mL of neck is performed Omnipaque utilizing 1 mm 350 contrast axial images material. after the Three-dimens uneventful ional maximum
intensity intravenous projection administration of reconstructio approximately 60 ns are mL of Omnipaque provided for
interpretatio 350 contrast n. material. Up-to-date CT

equipment Three-dimensional using maximum intensity Automatic projection Exposure reconstructions Control, dose
modulation, are provided for and iterative interpretation. reconstructio n dose

reduction Up-to-date CT software equipment using was employed. Automatic The total Exposure Control, study DLP is dose approximately
928.4 mGy-cm. modulation, and iterative FINDINGS: reconstruction Noncontrast dose reduction CT head: software Ventricular
was caliber is employed. within normal
The limits for total study DLP patient's is approximately age. There 928.4 mGy-cm. is a 1.3 x

0.8 cm focus FINDINGS: of

hyperdensity Noncontrast within the CT head: right basal
ganglia, more Ventricular conspicuous caliber is within compared to normal limits for prior outside patient's age. CT
examination. There is a 1.[address] 0.8 cm focus of evidence of hyperdensity delayed within the right intracranial
hemorrhage. basal ganglia, No midline more conspicuous shift or compared to prior hydrocephalus outside CT . Mild
mucosal examination. No thickening CT evidence of within the delayed right intracranial sphenoid hemorrhage. sinus. The
No mastoid air midline shift or cells are hydrocephalus. well-aerated. Mild mucosal The thickening within visualized
orbits are the right unremarkable. sphenoid sinus. There is no The mastoid air displaced cells are calvarial well-aerated. fracture.
CT The visualized angiography orbits are of the neck: unremarkable. Origins of There is no the great displaced vessels of
the neck are calvarial grossly fracture. patent.

Direct origin CT angiography of of the left the neck: vertebral
artery. The Origins of the left great vessels of vertebral the neck are artery is grossly patent. dominant..The
re is no Direct origin of evidence of the left hemodynamical vertebral artery. ly The left significant vertebral stenosis at
the common artery is carotid dominant..There artery is no evidence of bifurcations hemodynamically bilaterally significant utilizing
NASCET stenosis at the criteria. common carotid There is artery focal bifurcations enlargement bilaterally with linear
flap utilizing NASCET involving the criteria. left V2

vertebral There is focal segment at enlargement with the C4 linear flap transverse involving the foramen left (series 401
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
image yee 430) suggestive dissection of a flap. This pseudoaneurysm region and measures age-indeterminate approximately
3 mm x 4 mm dissection (transverse flap. This region by measures anteroposteri approximately 3 or). mm x 4 Additionally,
mm there is (transverse by luminal anteroposterior). irregularity Additionally, involving the there is luminal left distal
V1 segment irregularity (series 404 involving the image 117). left distal V1 Correlation segment (series with prior 404 history is
image suggested. 117). Correlation Findings with prior may reflect history is age-indetermi suggested. yee blunt Findings cerebrovascul
may ar injury. reflect Underlying age-indeterminate fibromuscular blunt dysplasia or cerebrovascular arteritis injury. cannot be Underlying excluded.
There is a fibromuscular laterally dysplasia or oriented arteritis cannot focal be excluded. outpouching There arising off
is a the distal laterally left cervical oriented focal internal outpouching carotid arising off the artery at the distal C1 level
left suggestive cervical internal of a carotid artery at pseudoaneurys the C1 level m with suggestive possible
of age-indetermi a pseudoaneurysm yee with possible dissection age-indeterminate flap, dissection measuring
approximately flap, measuring 5 x 3 mm approximately 5 x (anteroposter 3 mm ior by (anteroposterior transverse; by transverse; series 401
image 314). series 401 image 7 mm right 314). thyroid

7 nodule. If mm right thyroid this is a new nodule. If this finding for is a new finding patient, for patient, outpatient
thyroid outpatient ultrasound thyroid correlation ultrasound is suggested, correlation is as clinically suggested, as warranted. clinically CT
angiography warranted. [place] of

Root: CT angiography There is no [place] of Root: evidence of
proximal There is no branch evidence of occlusion or proximal branch high-grade occlusion or proximal high-grade stenosis to
the proximal stenosis visualized to the visualized vessels of vessels of the the [place] of [place] of [place].
Incidental Root. 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
within the within the right right basal basal ganglia/front ganglia/frontal al lobe. The lobe. The basilar basilar artery artery is
is patent. patent. Posterior Posterior communicating communicating arteries are arteries are present present bilaterally. bilaterally.
No evidence No evidence of of aneurysm aneurysm or large or large arteriovenous arteriovenous malformation. malformation.
Please note Please note that that aneurysms and aneurysms and arteriovenous arteriovenous malformations malformations less less than 3
than 3 mm may or may mm may or may not not be be detected detected utilizing CT utilizing CT angiographic angiographic
technique. technique.

IMPRESSION: IMPRESSION:

Noncontrast Noncontrast CT CT head: 1. head: Focus of
1. hyperdensity Focus of within the hyperdensity right basal within the right ganglia, more basal ganglia, conspicuous more compared to
prior outside conspicuous CT compared to prior examination outside CT likely examination related to likely related differences
in technique, to differences in possibly technique, reflecting possibly intraparenchy reflecting mal intraparenchymal hemorrhage.
Differential hemorrhage. consideration Differential s include a considerations cavernous include a malformation cavernous given malformation regional
prominent given regional developmental prominent venous developmental anomaly seen venous anomaly on seen on concurrently
performed CT concurrently angiogram, as performed CT detailed angiogram, as below. detailed below. Attention Attention on follow-up
on imaging is follow-up imaging suggested to is suggested to assess assess interval interval stability. stability.
Additional Additional correlation correlation with with pending pending MRI brain MRI brain is is suggested. suggested.
2. No CT 2. No CT evidence evidence of of large delayed large delayed intracranial intracranial hemorrhage. hemorrhage.

CT CT angiography angiography of the neck: of the neck:
1. Regions 1. Regions of of irregularity irregularity involving the involving the left vertebral left distal vertebral
V1 and distal V1 V2 segments, as and V2 described in segments, as detail above. described in Possible detail above. age-indeterminate Possible
age-indetermi dissection and yee pseudoaneurysm dissection involving the and left V2 segment pseudoaneurys within m involving
the C4 the left V2 transverse segment foramen. within the Underlying C4 transverse fibromuscular foramen. dysplasia Underlying
or fibromuscular arteritis cannot dysplasia be excluded. or arteritis Further cannot be correlation for excluded. prior Further
trauma correlation is suggested. for prior
trauma is 2. Suggestion of suggested. pseudoaneurysm 2. Suggestion involving the of distal left pseudoaneurys cervical m involving
the distal internal carotid left cervical artery, as internal described in carotid detail above. artery, as
described in 3. No evidence of detail above. hemodynamically 3. No significant evidence of stenosis at the hemodynamical
ly common carotid significant artery stenosis at bifurcations the common bilaterally per carotid NASCET criteria.. artery
bifurcations 4. Hypodense bilaterally right thyroid per NASCET nodule. If this criteria.. is a new finding 4. Hypodense for right thyroid
nodule. If patient, this is a new outpatient finding for thyroid patient, ultrasound outpatient correlation is thyroid suggested, ultrasound
as correlation clinically is suggested, warranted. as

clinically CT angiography warranted. [place] of Root: CT
angiography 1. No evidence [place] of of proximal Root: 1. branch occlusion No evidence or high-grade of proximal proximal branch
occlusion or stenosis to the high-grade visualized proximal vessels of the stenosis to [place] of Root. the
visualized 2. vessels of Developmental the [place] of venous anomaly in Root. 2. the region of the Developmental right basal venous
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 the right

basal These ganglia and findings were frontal lobe. discussed with These and readback findings were verification discussed
with and obtained from Dr. breezy Sylvester at 3:12 AM verification and 7:50 AM on obtained 05/10/2020 by from
Nga at 3:12 radiology AM and 7:[address] SÁNCHEZ on Hussein. 05/10/2020 by

radiology Additional result resident findings were Hussein. discussed with Additional and read back result
findings were verification discussed obtained from Dr. vides and stephani Broussard by back radiology verification resident obtained from
Dr. Broussard by Silas Stark on radiology 05/10/2020 at 8:[address] SÁNCHEZ. Silas

duane Stark on r/>

05/10/2020 at Resident 8:00 AM. Radiologist: Silas Stark MD Resident Resident Radiologist: Yani Rosen
Lincoln GREER Attending Resident Radiologist: Trini Nixon MD Attending
Radiologist: Adrianne Nixon MD Radiologist: Trini Nixon MD Radiologist:
Trini Nixon MD Transcribed Date: Transcribed 05/10/2020 10:14 Date:
05/10/2020 Finalized Date: 10:14 05/10/2020 10:28 Finalized Date:

</td> 05/10/2020 10:28 Brain (PACSIMAGE <td> 05/11/2020 [place] With[facility]With[facility] 15:56</td><td> [facility] Contrast- Final Result With[employer] [place] Name: Contrast-MRI MARGARITO GRUBBSI </td><td><paragra Mario MRN: ph [id number] Sex: styleCode="Italic F : s">(PACSIMAGE 1960 Location: F )</paragraph><br/ Admitting >
Final Physician: Result KRUNAL

HERIBERTO Name: Ngozi GRUBBSing STACY Martin Physician:
MRN: PRECIOUS [id number] Sex: F LINN
Exam: MRI : 1960 BRAIN C+/C- Location: F 05/11/2020
17:14 Admitting CLINICAL Physician: KRUNAL HISTORY: HERIBERTO Submitted
clinical Requesting information Physician: is: "IPH" PRECIOUS ESTEVES COMPARISON: CT scan of

the head Exam: MRI BRAIN performed C+/C- 05/11/2020 May 10, 2020. 17:14

TECHNIQUE: CLINICAL MRI of the HISTORY: brain was Submitted performed clinical with and information is: without "IPH" contrast

material COMPARISON: CT utilizing scan of the head multiplanar performed May [address] [facility]2019. pulse

sequences TECHNIQUE: acquired on a
MRI 3 Mireille MR of the brain was imaging performed with system. and without Examination contrast material was performed
before and utilizing after the multiplanar uneventful multiecho pulse intravenous sequences administratio acquired on a n of
approximately 3 Mireille MR 6 mL of IV imaging system. Gadavist Examination was contrast performed before material. and FINDINGS:
after The the uneventful ill-defined intravenous hyperdensity administration of in the head approximately of the right
caudate 6 mL of IV nucleus and Gadavist contrast and right material. globus

pallidus on FINDINGS: noncontrast CT scan of

the head is The ill-defined barely hyperdensity in perceptible the head of the as T1 right caudate shortening on
the current nucleus and and MRI of the right globus brain without pallidus on significant noncontrast CT T2*signal scan loss. There
of the is an head is barely associated perceptible as T1 moderate to shortening on the moderately current large
MRI of developmental the brain without venous significant anomaly in T2*signal loss. this region. There is The
an hyperdensity associated on CT scan moderate to and T1 moderately large hyperintensit developmental y on this venous MRI
anomaly demonstrates in this region. no to minimal The hyperdensity enhancement. on CT scan and T1 The hyperintensity differential
consideratio on this MRI ns for this demonstrates no region to minimal include enhancement. The subacute differential blood product
versus considerations hydrated for this region calcification include subacute . May blood product consider MRI
of the brain versus hydrated with calcification. susceptibilit May consider MRI y weighted of the brain imaging for
further with characterizat susceptibility ion as weighted imaging clinically for further appropriate. characterization Follow-up
imaging to as clinically document appropriate. stability Follow-up imaging is suggested to document to exclude stability underlying
is associated suggested to vascular exclude anomaly underlying such as associated cavernoma. vascular anomaly There is no
restricted such as diffusion to cavernoma. There suggest is no restricted acute diffusion to infarction. suggest There is no
acute hydrocephalus infarction. There . No further is no evidence of hydrocephalus. No large focal further evidence intracranial
signal of large focal abnormality intracranial or additional signal large focus abnormality or of abnormal additional intracranial
enhancement. large focus of Midline abnormal structures intracranial are intact enhancement. without Midline cerebellar structures tonsillar
are ectopia. intact without cerebellar IMPRESSION: tonsillar ectopia. Hyperdensity

in the right IMPRESSION: basal ganglionic

region on CT Hyperdensity in scan with the right basal associated ganglionic region nonenhancing on CT scan or minimally
enhancing T1 with associated shortening nonenhancing or on MRI of the minimally brain is enhancing T1 indeterminate shortening there is an
on associated MRI of the brain developmental is indeterminate venous there is an anomaly. associated Findings may developmental represent
subacute venous anomaly. blood Findings may products or represent possibly subacute blood hydrated products calcification
or . May possibly hydrated consider MRI calcification. of the brain May consider MRI with of the brain susceptibilit
y weighted with imaging for susceptibility further weighted imaging characterizat for further ion as characterization clinically
appropriate. as clinically Follow-up appropriate. imaging to Follow-up imaging document to document stability stability suggested to
exclude suggested to underlying exclude associated underlying vascular associated anomaly such vascular anomaly as such cavernoma.
as cavernoma. Resident Radiologist:

<b Attending r/> Resident Radiologist: Radiologist: Cuate Nicholas
Attending Finalizing Radiologist: Radiologist: Cuate Nicholas
Finalizing Transcribed Radiologist: Date: Cuate Nicholas MD 05/11/2020
17:57 Transcribed Date: Finalized 05/11/2020 17:57 Date:
05/11/2020 Finalized Date: 18:00 05/11/2020 18:00

</td> ID Date Data Source [id number] 05/10/2020 12:38:00 AM EDT [facility] [id number] Corporation Name Value Range Interpretation Description Data Sup porting Code Source(s) Document(s ) ABO-Rh Type O POS <td> [place] 05/10/2020 [facility] 00:38</td><td> Care ABO-Rh Type Corporation </td><td> O POS
</td> Antibody NEG <td> [place] Screen 05/10/2020 [facility] 00:38</td><td> Care Antibody Corporation Screen </td><td> NEG
</td> ABO O POS <td> [place] Verification 05/10/2020 [facility] 04:38</td><td> Care ABO Corporation Verification </td><td> O POS
</td> Specimen 05/13/20 <td> [place] expiration date 20 23:59 05/10/2020 [facility] of Blood 00:38</td><td> Care Specimen Corporation Expiration Date </td><td> 05/13/2020 23:59
</td> ID Date Data Source [id number] 05/10/2020 12:00:00 AM EDT [facility] Name Value Range Interpretation Code Description Data Corazon rce(s) Supporting Document(s ) SARS-COV-2 [place] RNA RT-PCR [facility] This lab was ordered by [facility] and reported by [facility]. ID Date Data Source [id number] 08/01/2019 06:18:00 AM [facility] Services Advisor:MITCH NGUYEN Name Value Range Interpretation Description Data Sup porting Code Source(s) Document(s ) Glucose 104 mg/dL [facility]Mass/volume[facility] in Capillary blood by Glucometer ID Date Data Source [id number] 07/25/2019 12:27:00 PM [facility] Name Value Range Interpretation Description Data Sup porting Code Source(s) Document(s ) Aspartate 30 U/L [facility] aminotransferase [place] [Enzymatic Hospital activity/volume] in Serum or Plasma ID Date Data Source [id number] 07/25/2019 12:27:00 PM EDT [facility] Name Value Range Interpretation Description Data Sup porting Code Source(s) Document(s ) Alanine 23 U/L [facility] [Enzymatic Hospital activity/volume] in Serum or Plasma ID Date Data Source [id number] 07/25/2019 12:27:00 PM EDT [facility] Name Value Range Interpretation Description Data Sup porting Code Source(s) Document(s ) Alkaline 71 U/L [facility] [Enzymatic activity/volume ] in Serum or Plasma ID Date Data Source [id number] 07/25/2019 12:27:00 PM EDT [facility] Name Value Range Interpretation Description Data Sup porting Code Source(s) Document(s ) Bilirubin.t 0.4 mg/dL [facility] [Mass/volum e] in Serum or Plasma ID Date Data Source [id number] 07/25/2019 12:27:00 PM EDT [facility] Name Value Range Interpretation Code Description Data Corazon rce(s) Supporting Document(s ) Albumin/Glob 1.9 [facility] [Mass Hospital Ratio] in Serum or Plasma ID Date Data Source [id number] 07/25/2019 [facility]:27[facility] Value Range Interpretation Description Data Sup porting Code Source(s) Document(s ) Albumin 4.4 g/dL [facility] [Mass/volume Hospital ] in Serum or Plasma ID Date Data Source [id number] 07/25/2019 12:27:00 PM EDT [facility] Name Value Range Interpretation Description Data Sup porting Code Source(s) Document(s ) Protein 6.7 g/dL [facility] [Mass[facility]volume Hospital ] in Serum or Plasma ID Date Data Source [id number] 07/25/2019 12:27:00 PM EDT [facility] Name Value Range Interpretation Description Data Sup porting Code Source(s) Document(s ) Calcium 9.0 mg/dL [facility] [Mass[facility]volume Hospital ] in Serum or Plasma ID Date Data Source [id number] 07/25/2019 12:27:00 PM EDT [facility] Name Value Range Interpretation Code Description Data Corazon rce(s) Supporting Document(s ) Urea 18.3 [facility] nitrogen/Cre Hospital atinine [Mass Ratio] in Serum or Plasma ID Date Data Source [id number] 07/25/2019 12:27:00 PM EDT [facility] Name Value Range Interpretation Description Data Sup porting Code Source(s) Document(s ) Creatinine 0.6 mg/dL [facility]volume[facility] in Serum or Plasma ID Date Data Source [id number] 07/25/2019 12:27:00 PM EDT [facility] Name Value Range Interpretation Description Data Sup porting Code Source(s) Document(s ) Urea 11 mg/dL [facility] nitrogen [facility] [Mass/volume ] in Serum or Plasma ID Date Data Source [id number] 07/25/2019 12:27:00 PM EDT [facility] Name Value Range Interpretation Code Description Data Corazon rce(s) Supporting Document(s ) Anion gap in 14 [facility] Serum or Hospital Plasma ID Date Data Source [id number] 07/25/2019 12:27:00 PM EDT [facility] Name Value Range Interpretation Description Data Sup porting Code Source(s) Document(s ) Carbon 26 mmol/L Marine dioxide, Hospital total [Moles/volu me] in Serum or Plasma ID Date Data Source [id number] 07/25/2019 12:27:00 PM EDT [facility] Name Value Range Interpretation Description Data Sup porting Code Source(s) Document(s ) Chloride 105 [facility] [Moles/volum mmol/L Hospital e] in Serum or Plasma ID Date Data Source [id number] 07/25/2019 12:27:00 PM EDT [facility] Name Value Range Interpretation Description Data Sup porting Code Source(s) Document(s ) Potassium 4.5 [facility] [Moles/volume mmol/L Hospital ] in Serum or Plasma ID Date Data Source [id number] 07/25/2019 12:27:00 PM EDT [facility] Name Value Range Interpretation Description Data Sup porting Code Source(s) Document(s ) Sodium 140 mmol/L [facility] [Moles/volu Hospital me] in Serum or Plasma ID Date Data Source [id number] 07/25/2019 12:27:00 PM EDT [facility] Value Range Interpretation Description Data Sup porting Code Source(s) Document(s ) Glucose 105 mg/dL [facility] [Mass/volume Hospital ] in Serum or Plasma ID Date Data Source [id number] 07/25/2019 12:27:00 PM EDT [facility] Name Value Range Interpretation Description Data Sup porting Code Source(s) Document(s ) Leukocyte NEGATIVE [facility] Hospital [Presence] in Urine by Test strip ID Date Data Source [id number] 07/25/2019 12:27:00 PM EDT [facility] Name Value Range Interpretation Description Data Sup porting Code Source(s) Document(s ) URINE NEGATIVE [facility] NITRITES Hospital ID Date Data Source [id number] 07/25/2019 12:27:00 PM EDT [facility] Value Range Interpretation Description Data Sup porting Code Source(s) Document(s ) Erythrocytes NEGATIVE [facility] [#/volume] in Hospital Urine by Test strip ID Date Data Source [id number] 07/25/2019 12:27:00 PM EDT [facility] Name Value Range Interpretation Code Description Data Corazon rce(s) Supporting Document(s ) Bilirubin. NEGATIVE [facility] total Hospital [Presence] in Urine by Test strip ID Date Data Source [id number] 07/25/2019 12:27:00 PM EDT [facility] Name Value Range Interpretation Description Data Sup porting Code Source(s) Document(s ) Urobilinogen 0.2 [facility] [Units/volume] mg/dL Hospital in Urine by Test strip ID Date Data Source [id number] 07/25/2019 12:27:00 PM EDT [facility] Name Value Range Interpretation Description Data Sup porting Code Source(s) Document(s ) Ketones NEGATIVE [facility] [Mass/volume Hospital ] in Urine by Test strip ID Date Data Source [id number] 07/25/2019 12:27:00 PM EDT [facility] Name Value Range Interpretation Description Data Sup porting Code Source(s) Document(s ) Glucose NEGATIVE [facility] [Mass/volume Hospital ] in Urine by Test strip ID Date Data Source [id number] 07/25/2019 12:27:00 PM EDT [facility] Name Value Range Interpretation Description Data Sup porting Code Source(s) Document(s ) Protein NEGATIVE [facility] [Presence] Hospital in Urine by Test strip ID Date Data Source [id number] [facility] Code Description Data Corazon rce(s) Supporting Document(s ) pH of Urine 5.5 [facility] by Test Hospital strip ID Date Data Source [id number] 07[facility] Interpretation Code Description Data Supporting Source(s) Document(s ) Specific 1.016 [facility] gravity of Hospital Urine by Test strip ID Date Data Source [id number] 07/25/2019 12:27:00 PM [facility] Name Value Range Interpretation Description Data Sup porting Code Source(s) Document(s ) Clarity in Urine CLEAR [facility] by Refractometry [facility] automated ID Date Data Source [id number] 07/25/2019 12:27:00 PM [facility] Name Value Range Interpretation Code Description Data Corazon rce(s) Supporting Document(s ) Color of YELLOW [facility] Urine Hospital ID Date Data Source [id number] 07/25/2019 12:27:00 PM [facility] THERAPEUTIC RANGES:UNFRACTIONATED HEPARI N THERAPY: 60-90 SECONDSARGATROBAN THERAPY: 49-99 SECONDS Name Value Range Interpretation Description Data Sup porting Code Source(s) Document(s ) aPTT in 40.3 s [facility] Platelet poor [facility] plasma by Coagulation assay ID Date Data Source [id number] 07/25/2019 12:27:00 PM [facility] THERAPEUTIC RANGE FOR STANDARD ORALANTIC OAGULANT THERAPY: 2.0-3.0THERAPEUTIC RANGE FOR HIGH DOSE ORALANTICOAGULANT THERAPY (MECHANICAL HEARTVALVE REPLACEMENT): 2.5-3.5 Name Value Range Interpretation Description Data Sup porting Code Source(s) Document(s ) INR in Platelet 1.0 [facility] poor plasma by [facility] Coagulation assay ID Date Data Source [id number] 07/25/2019 12:27:00 PM [facility] Name Value Range Interpretation Description Data Sup porting Code Source(s) Document(s ) PT panel - 11.4 s [facility] Platelet poor [facility] plasma by Coagulation assay ID Date Data Source [id number] 07/25/2019 12:27:00 PM EDT [facility] Name Value Range Interpretation Code Description Data Supporting Source(s) Document(s ) NUCLEATED RBCS 0.0 % [facility] (AUTO Hospital DIFF%)DIS ID Date Data Source [id number] 07/25/2019 12:27:00 PM EDT [facility] Value Range Interpretation Description Data Sup porting Code Source(s) Document(s ) Differential AUTOMATED [facility] cell count Hospital method - Blood ID Date Data Source [id number] 07/25/2019 12:27:00 PM EDT [facility] Name Value Range Interpretation Description Data Sup porting Code Source(s) Document(s ) Immature 0.04 [facility] granulocytes 10*3/uL Hospital [#/volume] in Blood by Automated count ID Date Data Source [id number] 07/25/2019 [facility] Value Range Interpretation Description Data Sup porting Code Source(s) Document(s ) Basophils 0.03 [facility] [#/volume] in 10*3/uL Hospital Blood by Automated count ID Date Data Source [id number] 07/25/2019 12:27:[facility] Name Value Range Interpretation Description Data Sup porting Code Source(s) Document(s ) Eosinophils 0.07 [facility] [#/volume] in 10*3/uL Hospital Blood by Automated count ID Date Data Source [id number] 07/25/2019 12:27:00 PM EDT [facility] Name Value Range Interpretation Description Data Sup porting Code Source(s) Document(s ) Monocytes 0.47 [facility] [#/volume] in 10*3/uL Hospital Blood by Automated count ID Date Data Source [id number] 07/25/2019 12:27:[facility] Name Value Range Interpretation Description Data Sup porting Code Source(s) Document(s ) Lymphocytes 1.39 [facility] [#/volume] in 10*3/uL Hospital Blood by Automated count ID Date Data Source [id number] 07/25/2019 12:27:00 PM EDT [facility] Value Range Interpretation Description Data Sup porting Code Source(s) Document(s ) Neutrophils 7.92 [facility] [#/volume] in 10*3/uL Hospital Blood by Automated count ID Date Data Source [id number] 07/25/2019 12:27:00 PM EDT [facility] Value Range Interpretation Description Data Sup porting Code Source(s) Document(s ) Nucleated 0.0 % [facility] erythrocytes/10 Hospital 0 leukocytes [Ratio] in Blood by Automated count ID Date Data Source [id number] 07/25/2019 12:27:00 PM EDT [facility] Value Range Interpretation Description Data Sup porting Code Source(s) Document(s ) Immature 0.4 % [facility] granulocytes/10 Hospital 0 leukocytes in Blood by Automated count ID Date Data Source [id number] 07/25/2019 12:27:00 PM EDT [facility] Value Range Interpretation Description Data Sup porting Code Source(s) Document(s ) Basophils/100 0.3 % [facility] leukocytes in Hospital Blood by Automated count ID Date Data Source [id number] 07/25/2019 12:27:00 PM EDT [facility] Value Range Interpretation Description Data Sup porting Code Source(s) Document(s ) Eosinophils/100 0.7 % [facility] leukocytes in Hospital Blood by Automated count ID Date Data Source [id number] 07/25/2019 12:27:00 PM EDT [facility] Value Range Interpretation Description Data Sup porting Code Source(s) Document(s ) Monocytes/100 4.7 % [facility] leukocytes in Hospital Blood by Automated count ID Date Data Source [id number] 07/25/2019 12:27:00 PM EDT [facility] Value Range Interpretation Description Data Sup porting Code Source(s) Document(s ) Lymphocytes/10 14.0 % [facility] 0 leukocytes Hospital in Blood by Automated count ID Date Data Source [id number] 07/25/2019 12:27:00 PM EDT [facility] Value Range Interpretation Description Data Sup porting Code Source(s) Document(s ) Neutrophils/10 79.9 % [facility] 0 leukocytes Hospital in Blood by Automated count ID Date Data Source [id number] 07/25/2019 12:27:00 PM EDT [facility] Value Range Interpretation Description Data Sup porting Code Source(s) Document(s ) Platelet mean 11.1 fL [facility] volume Hospital [Entitic volume] in Blood by Automated count ID Date Data Source [id number] 07/25/2019 12:27:00 PM EDT [facility] Value Range Interpretation Description Data Sup porting Code Source(s) Document(s ) Platelets 298 [facility] [#/volume] in 10*3/uL Hospital Blood by Automated count ID Date Data Source [id number] 07/25/2019 12:27:00 PM EDT [facility] Value Range Interpretation Description Data Sup porting Code Source(s) Document(s ) Erythrocyte 13.1 % [facility] distribution Hospital width [Ratio] by Automated count ID Date Data Source [id number] 07/25/2019 12:27:00 PM EDT [facility] Value Range Interpretation Description Data Sup porting Code Source(s) Document(s ) Erythrocyte mean 32.9 [facility] corpuscular g/dL Hospital hemoglobin concentration [Mass/volume] by Automated count ID Date Data Source [id number] 07/25/2019 12:27:00 PM EDT [facility] Name Value Range Interpretation Description Data Sup porting Code Source(s) Document(s ) Erythrocyte 31.4 pg [facility] corpuscular hemoglobin [Entitic mass] by Automated count ID Date Data Source [id number] 07/25/2019 12:27:00 PM EDT [facility] Name Value Range Interpretation Description Data Sup porting Code Source(s) Document(s ) Erythrocyte 95.5 fL [facility] mean Hospital corpuscular volume [Entitic volume] by Automated count ID Date Data Source [id number] 07/25/2019 12:27:00 PM EDT [facility] Name Value Range Interpretation Description Data Sup porting Code Source(s) Document(s ) Hematocrit 46.5 % [facility] [Volume Hospital Fraction] of Blood by Automated count ID Date Data Source [id number] 07/25/2019 12:27:00 PM EDT [facility] Name Value Range Interpretation Description Data Sup porting Code Source(s) Document(s ) Hemoglobin 15.3 g/dL [facility] [Mass/volume] Hospital in Blood ID Date Data Source [id number] 07/25/2019 12:27:00 PM EDT [facility] Value Range Interpretation Description Data Sup porting Code Source(s) Document(s ) Erythrocytes 4.87 [facility] [#/volume] in 10*6/uL Hospital Blood by Automated count ID Date Data Source [id number] 07/25/2019 12:27:00 PM EDT [facility] Name Value Range Interpretation Description Data Sup porting Code Source(s) Document(s ) Leukocytes 9.9 [facility] [#/volume] in 10*3/uL Hospital Blood by Automated count Procedure Social History Code Duration Value Status Description Data Source(s ) Smoking 08/01/2019 Smokes tobacco completed Smokes tobacco [facility] 06:11:00 AM EDT daily (finding) daily (finding) Hospital Smoking Unknown if ever completed Unknown if ever [facility] [place] smoked smoked Hospital Vital Signs ID Date Data Source UNK Name Value Range Interpretation Code Description Data Source(s) Diastolic blood 67 {} Normal (applies to 67 {} [place] pressure non-numeric results) [facility] Systolic blood 108 {} Normal (applies to 108 {} [place] pressure non-numeric results) [facility] First Respiration 17.0000 {} Normal (applies to 17.0000 {} [place] rate Set non-numeric results) [facility] Heart rate 72.0000 {} Normal (applies to 72.0000 {} [facility] non-numeric results) [facility] Body temperature 97.9000 {} Normal (applies to 97.9000 {} [place] non-numeric results) [facility] wt - obtain Normal (applies to {} [facility] [place] non-numeric results) [facility] weight - kg 61.4000 {} Normal (applies to 61.4000 {} [facility] [place] non-numeric results) [facility] Diastolic blood 72 mm[Hg] 72 mm[Hg] [facility] Systolic blood 120 mm[Hg] 120 mm[facility]Hg[facility] Respiratory rate 20 /min 20 /min [facility] Heart rate 97 /min 97 /min [facility] Body temperature 36.85348 36.28486 [facility] Hospital Body temperature 97.6 [degF] 97.6 [degF] [facility] Body mass index 22.6 kg/m2 22.6 kg/m2 [facility] (BMI) [Ratio] Hospital Body weight 153 [lb_av] 153 [lb_av] [facility] Body mass index 22.2 kg/m2 22.2 kg/m2 [facility] (BMI) [Ratio] Hospital Body weight 150 [lb_av] 150 [lb_av] [facility] Diastolic blood 80 mm[Hg] 80 mm[Hg] [facility] Systolic blood 120 mm[Hg] 120 mm[Hg] [facility] Respiratory rate 20 /min 20 /min [facility] Heart rate 93 /min 93 /min [facility] Body temperature 37.69640 37.90170 [facility] Body temperature 98.8 [degF] 98.8 [degF] [facility]
--- NOTE | 2020-08-07 13:11 | PDOC ---
History of Present Illness - General Chief Complaint: Injury Stated Complaint: RT 4TH DIGIT INJURY History Source: Patient Exam Limitations: No Limitations - History of Present Illness Initial Comments: 08/07/20 13:10 Patient is a 59-year-old female with past medical history of brain bleed, c/o injury to the right 4th finger since [place]. Patient states slammed her finger in the car door. States initially her pain was 10/10. Tetanus is up-to-date. PMD: LEELEE Bowen PMHX as above PSocHX: ALL: NKDA Review of Systems: GENERAL/CONSTITUTIONAL: No fever or chills. No weakness. No weight change. HEAD, EYES, EARS, NOSE AND THROAT: No change in vision. No ear pain or discharge. No sore throat. MUSCULOSKELETAL: No joint or muscle swelling or pain. No neck or back pain. SKIN AND BREASTS: No rash or easy bruising. HEMATOLOGIC/LYMPHATIC: No anemia, easy bleeding, or history of blood clots. ALLERGIC/IMMUNOLOGIC: No hives or skin allergy. No latex allergy. GENERAL: [The patient is awake, alert, and fully oriented, in acute distress.] NECK: [Normal range of motion, supple without lymphadenopathy, JVD, or masses.] EXTREMITIES: [Normal range of motion, no edema. No clubbing or cyanosis. No cords, erythema, or tenderness.] NEUROLOGICAL: [Cranial nerves II through XII grossly intact. Normal speech, normal gait.] PSYCH: [Normal mood, normal affect.] SKIN: [Warm, Dry, normal turgor, 1 cm laceration to the lateral aspect of the 4th finger, no rashes or lesions noted.] Past History - Medical History Allergies/Adverse Reactions: Allergies Allergy/AdvReac Type Severity Reaction Status Date / Time Sulfa (Sulfonamide Allergy Mild Rash Verified 08/07/20 12:45 Antibiotics) naproxen [From Naprosyn] Allergy Rash Verified 08/07/20 12:45 Home Medications: Ambulatory Orders Atorvastatin Calcium [Lipitor] 10 mg PO DAILY 03/08/19 Paroxetine HCl [Paxil -] 60 mg PO DAILY 03/08/19 Amoxicillin/Potassium Clav [Augmentin 875-125 Tablet] 1 each PO BID 7 Days #14 tablet 05/18/20 Cancer: (LIPOMA REMOVED) COPD: No Hypercholesterolemia: Yes Liver Disease: Yes (HEP C. TREATED) Psychiatric Problems: Yes (DEPRESSION) - Reproductive History Is Patient Now?: No - Immunization History Td Vaccination: Yes - Psycho-Social/Smoking History Smoking Status: Yes Smoking History: Unknown if ever smoked Have you smoked in the past 12 months: Yes Number of Cigarettes Smoked Daily: 10 'Breaking Loose' booklet given: 07/23/17 *Physical Exam - Vital Signs Last Vital Signs Temp Pulse Resp BP Pulse Ox 98 F 73 16 145/65 100 08/07/20 12:50 08/07/20 12:50 08/07/20 12:50 08/07/20 12:50 08/07/20 12:50 ED Treatment Course - RADIOLOGY Radiology Studies Ordered: Category Date Time Status HAND- RIGHT [RAD] Stat Radiology 08/07/20 13:02 Ordered - Medications Given in the ED: ED Medications Discontinued Medications Generic Name Dose Route Start Last Admin Trade Name Freq PRN Reason Stop Dose Admin Oxycodone/Acetaminophen 1 combo 08/07/20 13:01 08/07/20 13:03 Percocet 5/325 - PO 08/07/20 13:02 1 combo ONCE ONE Administration Medical Decision Making - Medical Decision Making 08/07/20 13:10 Patient is a 59-year-old female with past medical history of brain bleed, c/o injury to the right 4th finger since [place]. Patient states slammed her finger in the car door. States initially her pain was 10/10. Tetanus is up-to-date. Symptoms of crush injury finger with small superficial laceration. Laceration repaired with skin glue. Instructed patient to continue to ice the finger for 24 to 48 hours. Percocet 1 tab offered but refused. I discussed the physical exam findings, ancillary test results and final diagnoses with the patient. I answered all of the patient's questions. The patient was satisfied with the care received and felt comfortable with the discharge plan and treatment plan. The Patient agrees to follow up with the primary care physician within 24-72 hours. Discharge - Discharge Information Problems reviewed: Yes Clinical Impression/Diagnosis: Laceration of finger Qualifiers: Encounter type: initial encounter Finger: ring finger Damage to nail status: without damage Foreign body presence: without foreign body Laterality: right Qualified Code(s): S61.214A - Laceration without foreign body of right ring finger without damage to nail, initial encounter Condition: Stable Disposition: HOME - Follow up/Referral - Patient Discharge Instructions Patient Printed Discharge Instructions: DI for Laceration Repair-Skin Glue Additional Instructions: Your Discharge Instructions: You must call primary care physician within 24 hours to arrange follow-up. Return to the Emergency Department with any new, persistent or worsening symptoms, for fever, chills, SOB, dizziness or any other concerning changes that may occur. Ice the finger for 24 to 48 hours in 20-minute intervals. Be sure to keep the finger clean and dry. For swelling, redness or discharge from the wound return to the emergency room immediately - Post Discharge Activity
== END 2020-08-07 13:49 | disposition home or self-care (01) ==
LOC: JERFT 12:31
DX: S61.214A Laceration without foreign body of right ring finger without damage to nail, initial encounter (principal)
CPT/HCPCS: 73130-TC-RT-FY; 99283-25

== ENCOUNTER 2021-02-01 17:00 | Emergency (ER) | payer OTHER ==
[2021-02-01 17:17] VITALS: BP 109/64; PULSE 81; TEMP 100.3; BMI 21.4
[2021-02-01] MEDS ORDERED: ACETAMINOPHEN 500 MG TABLET (FP) PO ONE (17:33)
[2021-02-01] MEDS ORDERED: ACETAMINOPHEN 325 MG TABLET (FP) ONE (18:22)
[2021-02-01] MEDS ORDERED: VANCOMYCIN 1,000 MG in DEXTROSE 5%-WATER - 250 ML IVPB ONE (18:28)
[2021-02-01 18:30] LABS: BASO % 3.8 % (0-2.0); EOS % 1.2 % (0-4.5); HEMATOCRIT 41.2 % (32.4-45.2); HEMOGLOBIN 14.1 GM/dl (10.7-15.3); LYMPH % 20.8 % (8-40); MCH 31.8 pg (25.7-33.7); MCHC 34.3 g/dl (32.0-36.0); MEAN CELL VOLUME 92.6 fl (80-96); MEAN PLT VOLUME 8.5 fl (7.5-11.1); MONO % 10.8 % (3.8-10.2); NEUT % 63.4 % (42.8-82.8); PLATELET COUNT 228 K/MM3 (134-434); RBC 4.45 M/mm3 (3.60-5.2); RDW 13.6 % (11.6-15.6); WHITE BLOOD COUNT 10.9 K/mm3 (4.0-10.8)
[2021-02-01] MEDS ORDERED: VANCOMYCIN 1,000 MG VIAL (RESTRICTED TO ID ONLY) ONE (18:36)
[2021-02-01 18:46] LABS: ALBUMIN 3.5 g/dl (3.4-5.0); BILIRUBIN,TOTAL 0.6 mg/dl (0.2-1); CALCIUM 8.2 mg/dl (8.5-10); CREATININE 0.7 mg/dl (0.55-1.3); POTASSIUM 4.3 mmol/L (3.5-5.1); TOT PROT 6.7 g/dl (6.4-8.2)
== END 2021-02-01 20:04 ==
LOC: FER 17:00
PROC: 3E033GC Introduction of Other Therapeutic Substance into Peripheral Vein, Percutaneous Approach (ICD-10-PCS; principal; 2021-02-01)
DX: L03.115 Cellulitis of right lower limb (principal); L03.116 Cellulitis of left lower limb
CPT/HCPCS: 36415; 80053; 85025; 93970-TC; 99284-25

== ENCOUNTER 2021-04-02 10:20 | Emergency (ER) | payer OTHER ==
[2021-04-02 10:38] VITALS: BP 133/77; PULSE 87; TEMP 99.4; BMI 22.3
== END 2021-04-02 11:41 | disposition home or self-care (01) ==
LOC: FER 10:20
DX: M25.461 Effusion, right knee (principal)
CPT/HCPCS: 73562-TC-LT-FY; 99284-25

== ENCOUNTER 2021-04-10 10:53 | Emergency (ER) | payer OTHER ==
[2021-04-10 10:59] VITALS: BP 113/75; PULSE 81; TEMP 97.8; BMI 22.1
[2021-04-10] MEDS ORDERED: KETOROLAC TROMETHAMINE 30 MG/1 ML VIAL ONE (12:17)
[2021-04-10] MEDS ORDERED: KETOROLAC TROMETHAMINE 30 MG/1 ML VIAL IM ONE (12:20)
== END 2021-04-10 12:28 | disposition home or self-care (01) ==
LOC: JERFT 10:53
PROC: 3E0233Z Introduction of Anti-inflammatory into Muscle, Percutaneous Approach (ICD-10-PCS; principal; 2021-04-10)
DX: M25.462 Effusion, left knee (principal); M13.80 Other specified arthritis, unspecified site
CPT/HCPCS: 73562-TC-LT-FY; 93971-TC; 99284-25